=== PATIENT | male | born 1950 | race Caucasian/White ===

== ENCOUNTER → 2018-01-06 12:56 | Outpatient (CLI) | payer MEDICARE, OTHER, SELFPAY ==
--- NOTE | 2018-01-06 13:00 | CT_ITS ---
STUDY: CT ABDOMEN AND PELVIS WITH CONTRAST REASON FOR EXAM: Male, 67 years old. Renal cancer follow-up. RADIATION DOSAGE (If Supplied By Facility): CTDIvol = ( 18.86 ) mGy, DLP = ( 1938.94 ) mGycm TECHNIQUE: Transaxial images were obtained from the dome of the diaphragm to the symphysis pubis without oral contrast. 100mL ml of Isovue 300 contrast was administered. Sagittal and coronal images were reconstructed. Individualized dose optimization techniques were used for this CT. COMPARISON: November 15, 2016. June 13, 2016. June 05, 2016. FINDINGS: The visualized lung bases are unremarkable. The visualized portions of the heart are within normal limits. Small to moderate hiatal hernia likely increased in size since the prior study. Normal liver. Normal gallbladder and extrahepatic biliary system. Normal spleen. Normal pancreas. Normal bilateral adrenal glands. Scattered bilateral subcentimeter cortical cysts. Complex cyst or solid nodule, slightly increased in size since the prior study, and located anterior cortex superior/mid pole left kidney measuring 1.4 x 1.1 x 0.9 cm, attenuation 74 Hounsfield units axial image 39 series 2 and sagittal image 103. On the prior study the nodule measured 0.8 cm. Postoperative changes of partial left nephrectomy by history. Normal visualized stomach. Normal small intestine. Normal colon. Suture line and distal sigmoid colon. The appendix is visualized and appears normal. Normal abdominal aorta. Normal inferior vena cava. Normal retroperitoneum. No intra-abdominal free air. Mild smooth anterior bladder wall thickening. Borderline prostate gland enlargement. Small bilateral inguinal hernias containing fat. Minimal degenerative changes of the lumbar spine. CT/Abdomen/Pelvis WITH Contrast IMPRESSION: No evidence of recurrence of tumor. Slight increase in size of complex cyst or solid nodule anterior cortex superior/ midpole left kidney. Correlate with ultrasound. Slight increase in size of hiatal hernia. Mild bladder wall thickening could represent mild bladder outlet obstruction or cystitis among other etiologies. Bilateral renal cortical cysts unchanged. Borderline prostate gland enlargement. Additional nonemergent findings as above. Electronically Signed: Paramjit Jimenez MD at 6:51 EDT , Service support ,
== END ==
PROVIDERS: Family Provider Internal Medicine; PCP Internal Medicine; Visit Provider Urology
DX: C64.9 Malignant neoplasm of unspecified kidney, except renal pelvis (principal)
CPT/HCPCS: 74177; Q9967

== ENCOUNTER → 2018-01-08 16:29 | Outpatient (CLI) | payer MEDICARE, OTHER, SELFPAY ==
--- NOTE | 2018-01-08 16:32 | RAD_ITS ---
STUDY: X-RAY CHEST REASON FOR EXAM: Male, 67 years old. Kidney cancer TECHNIQUE: AP and lateral views of the chest. COMPARISON: Prior study of November 15, 2016 FINDINGS: The lungs are clear and expanded. There is left costophrenic angle blunting. The heart size is normal. Status post sternotomy changes are present. Normal mediastinum and angeal. Normal visualized pulmonary arteries. There are calcified plaques of the aortic arch. Normal visualized thoracic spine. Normal visualized ribs, clavicles, and shoulders. There is no demonstrated abnormality of the visualized soft tissue structures of the upper abdomen. RAD/Chest PA and Lateral IMPRESSION: Status post sternotomy. Left costophrenic angle blunting, stable in the interval. Calcified plaques of the aortic arch. No acute cardiopulmonary disease process is seen. Electronically Signed: Farhan León MD at 23:59 EDT , Service support ,
== END ==
PROVIDERS: Family Provider Internal Medicine; PCP Internal Medicine; Visit Provider Urology
DX: Z85.528 Personal history of other malignant neoplasm of kidney (principal)
CPT/HCPCS: 71046

== ENCOUNTER → 2018-06-29 07:47 | Outpatient (CLI) | payer MEDICARE, OTHER, SELFPAY ==
[2018-06-26 10:26] LABS: Anion Gap 8 (5-15); BUN 12 mg/dL (7-18); BUN/Creat Ratio 10.8 RATIO (10-20); Calcium,Total 9.2 mg/dL (8.5-10.1); Chloride 104 mmol/L (98-107); Creatinine, Serum 1.11 mg/dL (0.70-1.30); EST Glomerular Filtration Rate 70 mL/min (>60); Est Glom Filt Rate - Afr Amer 85 mL/min (>60); Glucose 202 mg/dL (74-106); PSA,Total - Annual Screen 3.11 ng/mL (0.00-4.00); Potassium 4.1 mmol/L (3.5-5.1); Sodium Level 140 mmol/L (136-145)
--- NOTE | 2018-06-29 07:50 | CT_ITS ---
STUDY: CT ABDOMEN WITH CONTRAST REASON FOR EXAM: Male, 68 years old. History of partial left nephrectomy for renal cell carcinoma. Follow-up examination. RADIATION DOSAGE (If Supplied By Facility): CTDIvol = ( 15.19 ) mGy, DLP = ( 783.18 ) mGycm TECHNIQUE: Transaxial images were obtained post I.V. administration of 75ml ml of Isovue 300 contrast, and without oral contrast. Sagittal and coronal images were reconstructed. Individualized dose optimization techniques were used for this CT. COMPARISON: Comparison is made with prior study dated January 06, 2018. FINDINGS: Stable pleural parenchymal changes at the left lung base. Prior CABG. Coronary artery calcification. Normal liver. Normal gallbladder and extrahepatic biliary system. Normal spleen. Normal pancreas. Normal bilateral adrenal glands. Stable 1.5 cm x 1.4 cm rounded hypodensity in the superior lateral portion of the right kidney. This is not a typical cyst. Correlation with ultrasound is recommended for further evaluation. Stable 1.5 cm round hypodensity in the anterior superior midportion of the left kidney. This is unchanged. Stable postsurgical changes are seen in the inferior aspect of the left kidney. Mild degree nonspecific bilateral perinephric stranding. There is a small hiatal hernia. Normal small intestine. Normal colon. The appendix is visualized and appears normal. There is diffuse atherosclerotic calcification of the abdominal aorta and its major visceral branches, without a demonstrated aneurysm. Normal inferior vena cava. Normal retroperitoneum. There is a small umbilical hernia containing fat. There are diffuse degenerative changes of the visualized lumbar spine. CT/Abdomen WITH IV Contrast IMPRESSION: Stable examination. Electronically Signed: Jaziel Ibarra MD at 14:36 EST Tel [phone], Service support ,
--- NOTE | 2018-06-29 07:50 | RAD_ITS ---
STUDY: X-RAY CHEST REASON FOR EXAM: Male, 68 years old. History of renal cell carcinoma. TECHNIQUE: PA and lateral views of the chest. COMPARISON: Comparison is made with prior study dated January 08, 2018. FINDINGS: Stable increased linear markings in the left mid lung suggestive of scarring. Hyperinflation. Stable blunting of the left costophrenic angle. Sternal cerclage wires and vascular clips are present from a prior sternotomy and coronary artery bypass graft procedure (CABG). Normal mediastinum and angela. Normal visualized pulmonary arteries. There is atherosclerotic calcification of the aortic arch with tortuosity. Normal visualized thoracic spine. Normal visualized ribs, clavicles, and shoulders. There is no demonstrated abnormality of the visualized soft tissue structures of the upper abdomen. RAD/Chest PA and Lateral IMPRESSION: Status post CABG. Stable increased linear markings at the left mid lung suggesting scarring. Electronically Signed: Jaziel Ibarra MD at 14:28 EST Tel [phone], Service support ,
--- OUTSIDE RECORDS SUMMARY | 2018-08-31 15:15 | XMS RPT_ITS ---
:1950 Author Organization [facility] Care Team Providers Name Role Phone KORABLEVA, CULLEN B Admitting Unavailable KORABLEVA, CULLEN B Attending Unavailable KORABLEVA, CULLEN B Primary Care Unavailable KORABLEVA, CULLEN B Admitting Unavailable KORABLEVA, CULLEN B Attending Unavailable KORABLEVA, CULLEN B Primary Care Unavailable RAMY ANDERSON MD Consulting Unavailable PROVIDER, UNKNOWN Consulting Unavailable PROVIDER, UNKNOWN Consulting Unavailable PROVIDER, UNKNOWN Consulting Unavailable KORABLEVA, CULLEN B Admitting Unavailable KORABLEVA, CULLEN B Attending Unavailable LISEABLEVA, CULLEN B Primary Care Unavailable RAMY ANDERSON MD Consulting Unavailable PROVIDER, UNKNOWN Consulting Unavailable PROVIDER, UNKNOWN Consulting Unavailable PROVIDER, UNKNOWN Consulting Unavailable Migue Barajas Attending Unavailable Migue Barajas Referring Unavailable JUSTIN BUTROS Primary Care Unavailable Migue Barajas Attending Unavailable Migue Barajas Referring Unavailable LATOUMichi, BUTROS Primary Care Unavailable Kormagdiva, Cullen Consulting Unavailable Migue Barajas Attending Unavailable Migue Barajas Referring Unavailable LATOUF, BUTROS Primary Care Unavailable PROBLEMS PROBLEMS DATE TYPE CONDITION / CODE ATTENDING STATUS SOURCE 06/29/2018 Unknown Z12.5 - Encounter Migue Barajas Active [place] for screening for [facility] malignant neoplasm [facility] / Repository Z12.5(ICD-10) 09/29/2017 Admitting Type 2 diabetes KORABLEVA, Active Andi [place] Diagnosis 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 / E1121(ICD-10) Repository 09/29/2017 Secondary Mixed hyperlipidemia KORABLEVA, Active [facility] Diagnosis / E782(ICD-10) [facility] Repository PROCEDURES PROCEDURES No Procedure Records FoundRESULTS RESULTS CHEST PA AND LATERAL Observed: 06/29/2018 Status: F Source: JOSE 7:51 AM [facility] REPOSITORY [facility] Imaging Services [address] [place] [address] Chest PA and Lateral MR#: [id number] Acct: [id number] Name: GIO HODGE Rep #: [id number] : 1950 M 68 From: Jaziel Ibarra MD PCP: Ramy Anderson Status: REG CLI Study: Chest PA and Lateral Date of Exam: 06/29/18 Exam# [id number] Ordering Dr: Migue Barajas MD STUDY: X-RAY CHEST REASON FOR EXAM: Male, 68 years old. History of renal cell carcinoma. TECHNIQUE: PA and lateral views of the chest. COMPARISON: Comparison is made with prior study dated January 08, 2018. FINDINGS: Stable increased linear markings in the left mid lung suggestive of scarring. Hyperinflation. Stable blunting of the left costophrenic angle. Sternal cerclage wires and vascular clips are present from a prior sternotomy and coronary artery bypass graft procedure (CABG). Normal mediastinum and angela. Normal visualized pulmonary arteries. There is atherosclerotic calcification of the aortic arch with tortuosity. Normal visualized thoracic spine. Normal visualized ribs, clavicles, and shoulders. There is no demonstrated abnormality of the visualized soft tissue structures of the upper abdomen. RAD/Chest PA and Lateral IMPRESSION: Status post CABG. Stable increased linear markings at the left mid lung suggesting scarring. Electronically Signed: Jaziel Ibarra MD at 14:28 EST Tel [phone], Service support , CC: Ramy Anderson; Migue Barajas MD [place] Sander: Signed ABDOMEN WITH IV Observed: 06/29/2018 Status: F Source: [place] CONTRAST 7:51 AM [facility] REPOSITORY [facility] Imaging Services [address] [place] [address] Abdomen WITH IV Contrast MR#: [id number] Acct: [id number] Name: GIO HODGE Rep #: [id number] : 1950 M 68 From: Jaziel Ibarra MD PCP: Ramy Anderson Status: REG CLI Study: Abdomen WITH IV Contrast Date of Exam: 06/29/18 Exam# [id number] Ordering Dr: Migue Barajas MD STUDY: CT ABDOMEN WITH CONTRAST REASON FOR EXAM: Male, 68 years old. History of partial left nephrectomy for renal cell carcinoma. Follow-up examination. RADIATION DOSAGE (If Supplied By Facility): CTDIvol = ( 15.19 ) mGy, DLP = ( 783.18 ) mGycm TECHNIQUE: Transaxial images were obtained post I.V. administration of 75ml ml of Isovue 300 contrast, and without oral contrast. Sagittal and coronal images were reconstructed. Individualized dose optimization techniques were used for this CT. COMPARISON: Comparison is made with prior study dated January 06, 2018. FINDINGS: Stable pleural parenchymal changes at the left lung base. Prior CABG. Coronary artery calcification. Normal liver. Normal gallbladder and extrahepatic biliary system. Normal spleen. Normal pancreas. Normal bilateral adrenal glands. Stable 1.5 cm x 1.4 cm rounded hypodensity in the superior lateral portion of the right kidney. This is not a typical cyst. Correlation with ultrasound is recommended for further evaluation. Stable 1.5 cm round hypodensity in the anterior superior midportion of the left kidney. This is unchanged. Stable postsurgical changes are seen in the inferior aspect of the left kidney. Mild degree nonspecific bilateral perinephric stranding. There is a small hiatal hernia. Normal small intestine. Normal colon. The appendix is visualized and appears normal. There is diffuse atherosclerotic calcification of the abdominal aorta and its major visceral branches, without a demonstrated aneurysm. Normal inferior vena cava. Normal retroperitoneum. There is a small umbilical hernia containing fat. There are diffuse degenerative changes of the visualized lumbar spine. CT/Abdomen WITH IV Contrast IMPRESSION: Stable examination. Electronically Signed: Jaziel Ibarra MD at 14:36 EST Tel [phone], Service support , CC: Ramy Anderson; Migue Barajas MD [place] Sander: Signed BASIC METABOLIC Collected: 06/26/2018 Status: F Source: JOSE PROFILE (BMP) 9:05 AM [facility] REPOSITORY Order Comment: Comments: \ TYPE CODE TESTS RESULT OUT OF RANGE REFERENCE UNITS LAB L501.0100 74-106 mg/dL High GLU 202 Result Comment: Glucose result greater than or equal to 200 mg/dL suggests DIABETES MELLITUS per A.D.A. criteria. Please note revised GLUCOSE reference range effective 2017. LAB L501.1000 7-18 mg/dL Normal BUN 12 LAB L501.1100 0.70-1.30 mg/dL Normal CREAT,SERUM 1.11 Result Comment: The validity of the calculated GFR AND GFRAA in patients over 70 years has not been determined. Clinical correlation is essential. LAB L501.1110 >60 mL/min Normal EST GFR 70 Result Comment: Non- GFR Calc LAB L501.1115 >60 mL/min Normal EST GFR - AA 85 Result Comment: GFR Calc LAB L501.1300 10-20 RATIO Normal BUN/CRE 10.8 LAB L501.2200 8.5-10.1 mg/dL CA Normal 9.2 LAB L501.5300 136-145 mmol/L NA Normal 140 LAB L501.5600 3.5-5.1 mmol/L K Normal 4.1 LAB L501.5900 98-107 mmol/L CL Normal 104 LAB L501.6100 21.0-32.0 mmol/L Normal CO2 28.0 LAB L501.6200 5-15 Normal GAP 8 Performed By: #### L500.2500, L501.9910 #### [facility] [address] [place], [address] PSA,TOTAL - ANNUAL Collected: 06/26/2018 Status: F Source: [place] SCREEN 9:05 AM [facility] REPOSITORY Order Comment: Comments: \ TYPE CODE TESTS RESULT OUT OF RANGE REFERENCE UNITS LAB L501.9910 0.00-4.00 ng/mL Normal PSA,TOT 3.11 SCREEN Result Comment: This test was performed using the TPSA assay method for the Data[employer] chemistry system. Values obtained with different assay methods cannot be used interchangably. When changing PSA assays in the course of monitoring a patient, additional sequential testing should be carried out to confirm baseline values. Performed By: #### L500.2500, L501.9910 #### [facility] [address] [place], [address] CHEST PA AND LATERAL Observed: 01/08/2018 Status: F Source: JOSE 4:32 PM [facility] REPOSITORY [facility] Imaging Services [address] [place] [address] Chest PA and Lateral MR#: [id number] Acct: [id number] Name: GIO HODGE Kimberly Rep #: [id number] : 1950 M 67 From: Farhan León MD PCP: Ramy Anderson Status: REG CLI Study: Chest PA and Lateral Date of Exam: 01/08/18 Exam# [id number] Ordering Dr: Migue Barajas MD STUDY: X-RAY CHEST REASON FOR EXAM: Male, 67 years old. Kidney cancer TECHNIQUE: AP and lateral views of the chest. COMPARISON: Prior study of November 15, 2016 FINDINGS: The lungs are clear and expanded. There is left costophrenic angle blunting. The heart size is normal. Status post sternotomy changes are present. Normal mediastinum and angela. Normal visualized pulmonary arteries. There are calcified plaques of the aortic arch. Normal visualized thoracic spine. Normal visualized ribs, clavicles, and shoulders. There is no demonstrated abnormality of the visualized soft tissue structures of the upper abdomen. RAD/Chest PA and Lateral IMPRESSION: Status post sternotomy. Left costophrenic angle blunting, stable in the interval. Calcified plaques of the aortic arch. No acute cardiopulmonary disease process is seen. Electronically Signed: Farhan León MD at 23:59 EDT , Service support , CC: Ramy Anderson; Migue Barajas MD [place] Sander: Signed ABDOMEN/PELVIS WITH Observed: 01/06/2018 Status: F Source: [place] CONTRAST 1:00 PM [facility] REPOSITORY [facility] Imaging Services [address] [place] [address] Abdomen/Pelvis WITH Contrast MR#: [id number] Acct: [id number] Name: GIO HODGE Rep #: [id number] : 1950 67 From: Paramjit Jimenez PCP: Ramy Anderson Status: REG CLI Study: Abdomen/Pelvis WITH Contrast Date of Exam: 01/06/18 Exam# [id number] Ordering Dr: Migue Barajas MD STUDY: CT ABDOMEN AND PELVIS WITH CONTRAST REASON FOR EXAM: Male, 67 years old. Renal cancer follow-up. RADIATION DOSAGE (If Supplied By Facility): CTDIvol = ( 18.86 ) mGy, DLP = ( 1938.94 ) mGycm TECHNIQUE: Transaxial images were obtained from the dome of the diaphragm to the symphysis pubis without oral contrast. 100mL ml of Isovue 300 contrast was administered. Sagittal and coronal images were reconstructed. Individualized dose optimization techniques were used for this CT. COMPARISON: November 15, 2016. June 13, 2016. June 05, 2016. FINDINGS: The visualized lung bases are unremarkable. The visualized portions of the heart are within normal limits. Small to moderate hiatal hernia likely increased in size since the prior study. Normal liver. Normal gallbladder and extrahepatic biliary system. Normal spleen. Normal pancreas. Normal bilateral adrenal glands. Scattered bilateral subcentimeter cortical cysts. Complex cyst or solid nodule, slightly increased in size since the prior study, and located anterior cortex superior/mid pole left kidney measuring 1.4 x 1.1 x 0.9 cm, attenuation 74 Hounsfield units axial image 39 series 2 and sagittal image 103. On the prior study the nodule measured 0.8 cm. Postoperative changes of partial left nephrectomy by history. Normal visualized stomach. Normal small intestine. Normal colon. Suture line and distal sigmoid colon. The appendix is visualized and appears normal. Normal abdominal aorta. Normal inferior vena cava. Normal retroperitoneum. No intra-abdominal free air. Mild smooth anterior bladder wall thickening. Borderline prostate gland enlargement. Small bilateral inguinal hernias containing fat. Minimal degenerative changes of the lumbar spine. CT/Abdomen/Pelvis WITH Contrast IMPRESSION: No evidence of recurrence of tumor. Slight increase in size of complex cyst or solid nodule anterior cortex superior/ midpole left kidney. Correlate with ultrasound. Slight increase in size of hiatal hernia. Mild bladder wall thickening could represent mild bladder outlet obstruction or cystitis among other etiologies. Bilateral renal cortical cysts unchanged. Borderline prostate gland enlargement. Additional nonemergent findings as above. Electronically Signed: Paramjit Jimenez MD at 6:51 EDT , Service support , CC: Cullen Valdez; Ramy Anderson; Migue Barajas MD [place] Sander: Signed ALLERGIES ALLERGIES DATE TYPE / CODE NAME / CODE REACTION SEVERITY SOURCE 06/05/2016 Drug No Known Unknown Jose [facility] Allergy/4160 Allergies/F00 Hospital 20027(SNOMED 2877294(RXNOR Repository CT) M) ENCOUNTERS ENCOUNTERS ADMIT/DISCHARGE ACCOUNT ADMITTING ENCOUNTER LOCATION SOURCE NUMBER CLASS 06/29/2018 [id number] Ambulatory [place] ing:CT Repository 04/01/2018/ [id number] [facility], [address] Repository 01/08/2018 [id number] Ambulatory [place] ing:RAD Repository 01/06/2018 [id number] Amb[place] [address] [place] [address] ing:CT Repository 12/30/2017/ [id number] [facility], Ambulatory [address] Repository 09/29/2017/ [id number] [address] Repository PAYERS PAYERS ENCOUNTER GUARANTOR PAYER SUBSCRIBER SOURCE 06/29/2018 GIO R Primary GIO R Jose [id number] SR Insurance:MEDICARE MAURERDOB: [address] PART A BPolicy Number: [id number] Hospital 28282Bnt: [id number]) [id number] Repository [phone] () Date:2018-06-23 06/29/2018 Secondary GIO R [place] Insurance:MEDICAL MAURERDOB: [facility] [id number] Hospital Number: Repository [id number] Date:5750-66-84[address] [address]JM: 06/29/2018 Tertiary NOT GIVENUNK Jose Insurance:SELF PAY [facility] Number: Effective Repository Date:2018-06-23 04/01/2018 GIO R Primary GIO R Andi Magallanes MAURERDOB: Insurance:MEDICARE MAURERDOB: [facility] [id number] [facility] [id number] [facility] [address], Number: [address] Repository Ri [id number] [address] [place] [address] [id number]: Date:Plan Name: [id number] () 04/01/2018 Secondary GIO R Andi Magallanes Insurance:MEDICAL MAURERDOB: [facility] [id number] [facility] 7 [facility] Repository Number: [place] [id number] Date: 01/08/2018 GIO R Primary GIO R Jose [id number] SR Insurance:MEDICARE MAURERDOB: [address] PART A BPolicy Number: [id number] Hospital [address]Bqq: 330 [id number] Repository [phone] () Date:2018-01-08 01/08/2018 Secondary GIO R Jose Insurance:MEDICAL MAURERDOB: [facility] [id number] Hospital Number: Repository [id number] Date:4734-16-66JH [address] [place] [address]TX: 01/08/2018 Tertiary NOT GIVENUNK [place] Insurance:SELF PAY [facility] Number: Effective Repository Date:2018-01-08 01/06/2018 GIO R Primary GIO R [place] [id number] SR Insurance:MEDICARE MAURERDOB: [address] PART A BPolicy Number: [id number] Hospital [address]Dff: 330 [id number] Repository [phone] () Date:2017-12-26 01/06/2018 Secondary GIO R Jose Insurance:MEDICAL MAURERDOB: [facility] [id number] Hospital Number: Repository [id number] Date:6659-29-16[address] [address]OL: 01/06/2018 Tertiary NOT GIVENUNK [place] Insurance:SELF PAY [facility] Effective Repository Date:2017-12-26 12/30/2017 GIO R Primary GIO R Andi Pomerene MAURERDOB: Insurance:MEDICARE MAURERDOB: [facility] [id number] [place] [address] [id number] [place] [address], Number: [address] [place]ository [place] [id number] [address] [place] [address] [id number]: Date:Plan Name: [id number] () 12/30/2017 Secondary GIO R Andi Pomerene Insurance:MEDICAL MAURERDOB: [facility] [id number] [place] [address] Repository [place]: [place] [id number] Date:Plan Name: 09/29/2017 GIO R Primary GIO R Andi Pomerene MAURERDOB: Insurance:MEDICAL MAURERDOB: [facility] [id number] [place] [address] [id number] [place] [address] [place]ository [place]: [place] [id number]: [id number] Date:Plan Name: () 09/29/2017 Secondary GIO R Andi Pomerene Insurance:MEDICARE MAURERDOB: [facility] [id number] Hospital Number: 7 [address], Repository [id number] Ri [id number] Date:Plan Name:
== END ==
PROVIDERS: Family Provider Internal Medicine; PCP Internal Medicine; Referring Provider Urology; Visit Provider Urology
DX: C64.9 Malignant neoplasm of unspecified kidney, except renal pelvis (principal); Z12.5 Encounter for screening for malignant neoplasm of prostate
CPT/HCPCS: 36415; 71046; 74160; 80048; 84153; Q9967; G0103

== ENCOUNTER → 2018-07-16 17:26 | Outpatient (CLI) | payer MEDICARE, OTHER, SELFPAY | PROVIDERS: Family Provider Internal Medicine; PCP Internal Medicine; Referring Provider Urology; Visit Provider Urology | DX: R82.998 Other abnormal findings in urine (principal) | CPT/HCPCS: 87077; 87086; 87088; 87186 ==

== ENCOUNTER 2020-05-03 18:58 | Inpatient (IN) | payer MEDICARE, OTHER, SELFPAY ==
[2020-05-03] VITALS (8 sets, daily range): BP systolic 127–166; BP diastolic 79–100; PULSE 84–105; RESP 15–18; TEMP 35.9–36.9; O2SAT 96–99; BMI 30.4
--- NOTE | 2020-05-03 19:12 | EKG12_ITS ---
Test Reason : CP Blood Pressure : / mmHG Vent. Rate : 101 BPM Atrial Rate : 101 BPM P-R Int : 144 ms QRS Dur : 106 ms QT Int : 348 ms P-R-T Axes : 072 095 084 degrees QTc Int : 451 ms Sinus tachycardia Biatrial enlargement Rightward axis Nonspecific ST abnormality Abnormal ECG Confirmed by JASON MATHIAS, GENESIS ([id number]), proposal editor NADEEN SANCHEZ ([id number]) on 05/05/2020 11:10:19 AM Referred By: LIBERTY Confirmed By:GENESIS GOMEZ MD
[2020-05-03] MEDS: Aspirin 81 MG TAB.CHEW 324 MG PO (19:25)
[2020-05-03] MEDS: Morphine 4 MG/ML Syringe IV (19:26)
[2020-05-03] MEDS: Ondansetron 4 MG/2 ML Vial IV (19:26)
[2020-05-03 19:27] LABS: Absolute Lymphocyte Count 1.19 X10^3/uL (0.83-4.51); Absolute Neutrophil Count 11.5 X10^3/uL (2.0-7.7); Basophil# 0.04 X10^3/uL; Basophil% 0.3 % (0-1); Eosinophil# 0.02 X10^3/uL; Eosinophils% 0.2 % (0-5); Lymphocyte # 1.19 X10^3/ul (4.0); Mean Corp Hgb Conc 34.5 g/dL (32-36); Mean Corpuscular Hgb 31.4 pg (27.0-32.0); Mean Corpuscular Volume 90.9 fL (80-94); NRBC Flagged by Analyzer 0 % (0-5); Neutrophil # 11.51 X10^3/uL (2.7-7.7); Platelet Count 235 K/mm3 (150-450); RBC Distribution Width CV 12.6 % (11.6-14.6); Red Blood Count 5.83 M/mm3 (4.6-6.2); White Blood Count 13.2 K/mm3 (4.4-11.0)
--- NOTE | 2020-05-03 19:27 | ED.DCSUM_ITS ---
- ER Visit Summary Date of Service: 05/03/20 Chief Complaint: Chest pain History of Present Illness: The patient is a 70 M presenting with chest pain. He states this started this morning was intermittent and then more persistent throughout the day. Pain is in his mid chest and is 9 out of 10. He states he had diaphoresis earlier today. Denies radiation of his pain. He does not recall anything that makes this better or worse. He has a history of CABG, diabetes, hypertension, hypercholesterolemia. He is a smoker. Denies PE/DVT risk factors. Denies Covid symptoms. Physical Examination: Vitals are stable. Patient is afebrile. Alert no acute distress. HEENT exam is unremarkable. Neck is supple. Lungs are clear and equal bilaterally. Heart is regular tachycardic Abdomen is soft nontender nondistended. Extremities are unremarkable. Skin is warm and dry. No focal neurologic deficit. Remainder of exam is unremarkable. Emergency Department Course and Treatment: Patient was given aspirin, morphine, Zofran. EKG is sinus tachycardia, ST depression anterior laterally. Chemistries show glucose 380, BUN 19, creatinine 1.31. Troponin 3.82. He continues to have pain was given nitro, fentanyl IV. D-dimer over 20. Covid is negative. Due to elevated D-dimer, CTA chest was obtained and shows negative for pulmonary embolus. Atherosclerotic changes of the aorta without aneurysm or dissection. Normal cardiac size without pericardial effusion. Extensive coronary calcifications status post prior midline sternotomy. Centrilobular emphysematous changes of the upper lobes and diffuse bronchial thickening particularly in the lower lobes and more so in the left lower lobe with a dense band of atelectatic lung in the posterior left lower lobe without pleural effusion. Minor band of atelectasis in the dependent lingula. Discussed with Dr. Obregon, cardiology. He evaluated the patient at bedside. Patient had a short run of V. tach while he was in the room. He continues to have chest pain and will be taken to the [facility] tonight. Discussed with hospitalist for admission. Disposition: Admission Impression: NSTEMI This note was generated with miCabation software. It may contain incorrect words, spelling, and punctuation that were not noted in review of the chart prior to signing ED Disposition - Plan for ED Patient:
--- NOTE | 2020-05-03 19:35 | RAD_ITS ---
STUDY: X-RAY CHEST REASON FOR EXAM: Male, 70 years old. PATIENT WITH CHEST PAIN THAT STARTED AROUND NOON TODAY. HAS BEEN CONSTANT SINCE NOON. DOES NOT RADIATE ANYWHERE. HISTORY OF CABG. TECHNIQUE: 1 view COMPARISON: Prior chest radiograph of 06/29/2018 FINDINGS: The lungs are clear and expanded. There is no demonstrated pleural abnormality. Normal cardiac size status post prior midline sternotomy. Normal mediastinum and angela. Normal visualized pulmonary arteries. There is atherosclerotic calcification of the aortic arch with tortuosity. There are diffuse degenerative changes of the visualized thoracic spine. Normal visualized ribs, clavicles, and shoulders. There is no demonstrated abnormality of the visualized soft tissue structures of the upper abdomen. RAD/Chest 1 View (Portable) IMPRESSION: No acute cardiopulmonary findings or changes. Negative for consolidation, atelectasis or pleural effusion. Normal cardiac size status post prior midline sternotomy. Electronically Signed: Nisha Holliday MD at 20:34 EST , Service support ,
[2020-05-03 19:49] LABS: Anion Gap 7 (5-15); BUN 19 mg/dL (7-18); BUN/Creat Ratio 14.5 RATIO (10-20); Calcium,Total 10.5 mg/dL (8.5-10.1); Chloride 98 mmol/L (98-107); Creatinine, Serum 1.31 mg/dL (0.70-1.30); EST Glomerular Filtration Rate 58 mL/min (>60); Est Glom Filt Rate - Afr Amer 70 mL/min (>60); Estimated Creatinine Clearance 48.03 ml/min; Glucose 380 mg/dL (74-106); Potassium 4.3 mmol/L (3.5-5.1); Sodium Level 136 mmol/L (136-145)
[2020-05-03] MEDS: Nitroglycerin SL (ED/IMG/CATH) 0.4 MG TABLET SUBLINGUAL (19:58)
[2020-05-03 20:04] LABS: D-Dimer Quantitative (DVT/PE) > 20.00 FEU/ug/m (0.27-0.49)
[2020-05-03 20:08] LABS: Hemoglobin 18.3 g/dL (13.0-16.5)
--- NOTE | 2020-05-03 20:12 | CT_ITS ---
STUDY: CTA CHEST REASON FOR EXAM: Male, 70 years old. CHEST PAIN SINCE NOON,HAS ELEVATED TROPONIN -- HX:HTN,ME,HLD,CABG,1/2 LT KIDNEY REMOVED RADIATION DOSAGE (If Supplied By Facility): CTDIvol = ( 8.86 ) mGy, DLP = ( 422.37 ) mGycm TECHNIQUE: The examination was performed with the intravenous administration of IV 100mL [id number]-370. Post-processing of the angiographic images was performed, with multiplanar reformation and 3D reconstruction. Individualized dose optimization techniques were used for this CT. COMPARISON: Portable chest radiograph from 05/03/2020 FINDINGS: Normal enhancement of the main pulmonary artery and right and left pulmonary arteries. Normal enhancement of the bilateral peripheral pulmonary arteries. There is no demonstrated pulmonary embolism. There is atherosclerotic calcification of the aortic arch with tortuosity. There is no demonstrated aortic dissection. Normal heart and pericardium. Coronary calcifications. Status post prior midline sternotomy. He has a fluid distended stomach and fluid retention or reflux into the esophagus. Normal hilar regions. Centrilobular emphysematous changes of the upper lobes. Generalized bronchial thickening particularly in the bilateral lower lobes more so in the left lower lobe with a dependent area of dense atelectasis or consolidation in the posterior left lower lobe and to a lesser extent the dependent portion of the lingula. Negative for pleural effusion. Normal chest wall structures. Normal osseous structures. He has a prominent left thyroid lobe that extends down to the manubrial notch. CT/CTA Chest W/WO Contrast IMPRESSION: Negative for pulmonary embolus. Atherosclerotic changes of the aorta without aneurysm or dissection. Normal cardiac size without pericardial effusion. Extensive coronary calcifications status post prior midline sternotomy. Centrilobular emphysematous changes of the upper lobes and diffuse bronchial thickening particularly in the lower lobes and more so in the left lower lobe with a dense band of atelectatic lung in the posterior left lower lobe without pleural effusion. Minor band of atelectasis in the dependent lingula. Electronically Signed: Nisha Holliday MD at 21:41 EST , Service support ,
[2020-05-03 20:15] LABS: Partial Thromboplast Time 27.1 Seconds (24.1-36.2)
[2020-05-03] MEDS: Heparin Injection (Vial) 5,000 UNIT/ML VIAL 6000 UNIT IV (20:46)
[2020-05-03] MEDS: HEPARIN/D5w 25,000 UNITS 25,000 UNITS/250 ML IV.SOLN. 0.1 UNITS IV (20:47)
[2020-05-03] MEDS: fentaNYL 100 MCG/2 ML Ampul IV (20:48)
[2020-05-03] MEDS: Nitroglycerin (INPATIENT USE) 0.4 MG TAB.SUBL SUBLINGUAL ×2 (20:53→20:57)
--- NOTE | 2020-05-03 21:39 | ED.RN ---
SON CALLED AND UPDATED ON PATIENT CONDITION
--- NOTE | 2020-05-03 21:55 | PCM.HP.STD ---
Problem List (1) Non-STEMI (non-ST elevated myocardial infarction) Status: Acute (2) HTN (hypertension) Status: Chronic (3) Diabetes Status: Acute (4) Tobacco abuse Status: Acute History of Present Illness Date of Admission: 05/03/20 Chief Complaint: chest pain The patient is a 70 year old M with a significant history of hypertension; diabetes mellitus; tobacco abuse; CAD status post 5 vessel CABG; and 3 stents who presents to the emergency department with progressively worsening excruciating nonradiating substernal chest pain that started on the same day of presentation. He denies any ameliorating or aggravating factors. He denies any nausea or vomiting. He reported diaphoresis. EKG at emergency department showed ST depressions in multiple leads. Troponin was elevated. Cardiology was consulted at emergency department and plan is to take patient to the [facility]. Past Medical History Past Medical History (Chronic Problems): Chronic Problems (Last Updated 05/03/20 @ 23:[address] Yeison Nevarez MD) HTN (hypertension) (Chronic) Medical History: Medical History (Last Updated 05/03/20 @ 23:[address] Yeison Nevarez MD) Diabetes mellitus E11.9 Allergies No Known Allergies Allergy (Verified 05/03/20 19:02) Home Medications: Ambulatory Orders Medication Instructions Recorded Aspirin [Aspirin, Baby] 81 mg PO DAILY@0800 11/01/14 Atorvastatin Calcium [Lipitor] 40 mg PO QHS 11/01/14 Lisinopril [Zestril] 10 mg PO DAILY 11/01/14 Metoprolol Tartrate [Lopressor 25 mg PO BID 11/01/14 (Beta Yoni)] metFORMIN HCl [Glucophage] 500 mg PO BIDCM #60 tablet 11/02/14 Clopidogrel Bisulfate [Plavix] 75 mg PO DAILY 06/05/16 Glimepiride [Amaryl] 2 mg PO DAILY 06/06/16 Surgical History: - - CABG; coronary stents. Smoking Status: Current every day smoker Tobacco Use: Cigarettes - *Family History Maternal History Items: - - His mother at the age of 92. Denies any knowledge of maternal medical history. Paternal History Items: Diabetes - His father from diabetes at the age of 68. Review of Systems Constitutional: Denies: Chills, Fever, Weight Change HEENT: Denies: Head Aches, Sinus Congestion, Sinus Drainage Cardiovascular: Reports: Chest Pain. Denies: Palpitations Respiratory: Denies: Cough, Shortness of breath at rest, Sputum production Gastrointestinal: Denies: Abdominal Pain, Nausea, Vomiting Genitourinary: Denies: Dysuria Musculoskeletal: Denies: Joint Pain, Joint Tenderness Skin: Denies: Rash, Wounds Neurological: Denies: Numbness, Tingling, Focal weakness Psychiatric: Denies: Anxiety, Depression, Homicidal Ideations, Suicidal Ideations Hematologic/ Lymphatic: Denies: Easy Bruising, Easy Bleeding VTE Information - Inpt Only VTE Present on Admission: No VTE Mechan Device Prophylaxis: None VTE Pharm Prophylaxis ordered?: No Reason prophylaxis not ordered:: Treatment Not Indicated - Started on therapeutic dose of heparin for non-STEMI. Patient Problems: Active and Suspected Problems (Last Updated 05/03/20 @ 23:[address] Yeison Nevarez MD) Non-STEMI (non-ST elevated myocardial infarction) (Acute) Diabetes (Acute) Tobacco abuse (Acute) - Physical Exam Vitals/I&O's: Vital Signs Temp Pulse Resp BP Pulse Ox 96.7 F L 102 H 16 145/95 H 96 05/03/20 18:59 05/03/20 21:00 05/03/20 21:00 05/03/20 21:00 05/03/20 21:00 Oxygen Flow Rate (L/min) 2 Oxygen Delivery Method Room Air Weight: 85.7 kg Body Mass Index (BMI) 30.4 Finger Stick Blood Glucose 206 General: Alert, Oriented x3, Cooperative HEENT: Atraumatic, PERRLA, EOMI, Normocephalic Neck: Supple, No JVD, Negative Carotid Bruits Lungs: Clear to auscultation, Normal air movement Cardiovascular: Regular rate, No murmurs Abdomen: Bowel Sounds Present, Soft, Non Tender Extremities: No edema, Capillary Refill Less than 3 Seconds Skin: No rashes, No breakdown Musculoskeletal: No Tenderness to Palpation of Joints or Extremities Neurological: Cranial nerves II-XII grossly intact Psych/Mental Status: Normal Affect, Appropriate Microbiology Past 72 Hours 05/03/20 20:02 Mucosa - Nose SARS-CoV-2 Antigen (Rapid) - Final Laboratory Results 05/03/20 19:05: WBC 13.2 H, RBC 5.83, Hgb 18.3 H*, Hct 53.0, MCV 90.9, MCH 31.4, MCHC 34.5, RDW Std Deviation 41.0, RDW Coeff of Medardo 12.6, Plt Count 235, MPV 12.0, Immature Gran % (Auto) 0.500, Neut % (Auto) 87.0 H, Lymph % (Auto) 9.0 L, [place] % (Auto) 3.0, Eos % (Auto) 0.2, Baso % (Auto) 0.3, Absolute Neuts (auto) 11.5 H, Absolute Lymphs (auto) 1.19, Nucleated RBC % 0 05/03/20 19:05: D-Dimer Quant (PE/DVT) > 20.00 H* 05/03/20 19:05: Sodium 136, Potassium 4.3, Chloride 98, Carbon Dioxide 31.0, Anion Gap 7, BUN 19 H, Creatinine 1.31 H, Estim Creat Clear Calc 48.03, Est GFR (MDRD) Af Amer 70, Est GFR (MDRD) Non-Af 58 L, BUN/Creatinine Ratio 14.5, Glucose 380 H, Calcium 10.5 H, Troponin I 3.820 H* 05/03/20 19:05: APTT 27.1 Current Medications Heparin Sodium (Porcine) (Heparin Injection (Vial) 5,000 Unit/Ml Vial) 0 unit IV UD PRN; Protocol PRN Reason: dose adjustment Heparin Sodium/Dextrose () 25,000 units in 250 mls @ 12 mls/hr IV .[id number] [facility]; Protocol Last Admin: 05/03/20 20:47 Dose: 12 units/hr, 0.1 mls/hr Documented by: Assessment/Plan All Active Problems (Last Updated 05/03/20 @ 23:[address] Yeison Nevarez MD) Non-STEMI (non-ST elevated myocardial infarction) (Acute) Diabetes (Acute) Tobacco abuse (Acute) Non-ST elevation [place] Review of imaging department labs showed troponin of 3.820. Patient was evaluated at emergency department by cardiology. Reportedly while cardiology was in the patient's room patient had an episode of V. tach. Trend troponins. Plan is to admit patient to the intensive care unit after cardiac cath. Actual CXR image was independently visualized. No acute cardiopulmonary process was noted. Actual EKG tracing was independently visualized. EKG tracing showed ST depressions in multiple leads. ASA 81 mg p.o. daily continued. Reportedly he was on Plavix. Last stent was about 4 years ago. Reportedly his Plavix was stopped about 2 years ago. SL NTG 0.4 mg prn as needed for chest pain ordered Morphine as needed for pain ordered We will check lipid panel. Statin: Home Lipitor continued. Anticoagulation: Was started on therapeutic dose of heparin at emergency department; continued. Stat EKG for chest pain. Hypertension Blood pressure was elevated on presentation Lisinopril and metoprolol continued Trend blood pressure and adjust blood pressure medications. Diabetes mellitus Patient with hyperglycemia on presentation With n.p.o. for cardiac cath would hold home glimepiride and metformin. Lantus ordered. Accu-Chek every 4 hours with correction scale insulin. Tobacco abuse Counseled. DVT prophylaxis Not indicated since patient is on heparin drip for non-STEMI. Inpatient E&M: 31130 Init Hosp L3
--- NOTE | 2020-05-03 22:02 | PCM.CONS.C ---
Problem List (1) Non-STEMI (non-ST elevated myocardial infarction) Status: Acute Reason for Consult Date of Consultation: 05/03/20 Reason for Consultation: Non-STEMI with ventricular tachycardia History of Present Illness: The patient is a 70 year old M started having substernal precordial chest pressure with shortness of breath at noon time. He got worse. He was seen emergency room. He was found to have sinus tachycardia and ST segment depression. While during interrogation, I saw 7 beats of unsustained ventricular tachycardia. At this point patient still having 5 out of 10 pain. His cardiac history dates back to 2013. At that time patient had 5 grafts bypass. 4 years ago, patient had 3 stents put in. 2017 before partial left renal nephrectomy for renal cell carcinoma he had a normal stress test. Since then he did well. He is still smoking a pack of cigarettes a day. He is a nondrinker. He is known to have hypertension, diabetes or hyperlipidemia. He claims that he never had a heart attack or CVA. In a good day, patient can do anything he wants to do with no difficulty. Enzymes was elevated [] Past Medical History Allergies/Adverse Reactions: Allergies No Known Allergies Allergy (Verified 05/03/20 19:02) Home Medications: Ambulatory Orders Medication Instructions Recorded Aspirin [Aspirin, Baby] 81 mg PO DAILY@0800 11/01/14 Atorvastatin Calcium [Lipitor] 40 mg PO QHS 11/01/14 Lisinopril [Zestril] 10 mg PO DAILY 11/01/14 Metoprolol Tartrate [Lopressor 25 mg PO BID 11/01/14 (Beta Yoni)] metFORMIN HCl [Glucophage] 500 mg PO BIDCM #60 tablet 11/02/14 Clopidogrel Bisulfate [Plavix] 75 mg PO DAILY 06/05/16 Glimepiride [Amaryl] 2 mg PO DAILY 06/06/16 Smoking Status: Current every day smoker Review of Systems - Review of Systems General: Denies: Fever, Night Sweats, Fatigue HEENT: Reports: - - Hard of hearing Cardiovascular: Reports: Chest Discomfort Respiratory: Denies: Cough, Sputum Production, Hemoptysis Gastrointestinal: Denies: Hematemesis, Hematochezia, Melena Genitourinary: Reports: - - Renal partial nephrectomy for renal cell carcinoma. Denies: Dysuria, Hematuria Objective: Vital Signs Temp Pulse Resp BP Pulse Ox 96.7 F L 102 H 16 145/95 H 96 05/03/20 18:59 05/03/20 21:00 05/03/20 21:00 05/03/20 21:00 05/03/20 21:00 Oxygen Flow Rate (L/min) 2 Oxygen Delivery Method Room Air Weight: 188 lb 14.978 oz Body Mass Index (BMI) 30.4 Finger Stick Blood Glucose 206 General: Awake, Alert, Oriented x 3, Cooperative, - - With chest pain HEENT: PERRL, EOMI, Sclera Non Icteric Neck: Supple Lungs: Diminished Giovani Bases, - - No bronchospasm Cardiovascular: Regular Rhythm, Normal S1, Normal S2, No Murmurs, No Rubs, No Gallops Vascular: No Carotid Bruits, Normal Femoral Pulses, Decreased R Dorsalis Pedal Pulse, Decreased L Dorsalis Pedal Pulse, Decreased R Posterior Tibial Pulse, Decreased L Posterior Tibial Pulse Abdomen: Bowel Sounds Present, Soft, Non Tender, No HSM, No Organomegaly Extremities: No edema Neurological: No Focal Motor or Sensory Deficit Psych/Mental Status: Appropriate, Normal Affect 05/03/20 19:05: WBC 13.2 H, RBC 5.83, Hgb 18.3 H*, Hct 53.0, MCV 90.9, MCH 31.4, MCHC 34.5, Plt Count 235, MPV 12.0, Immature Gran % (Auto) 0.500, Neut % (Auto) 87.0 H, Lymph % (Auto) 9.0 L, Wilkin % (Auto) 3.0, Eos % (Auto) 0.2, Baso % (Auto) 0.3, Absolute Neuts (auto) 11.5 H, Nucleated RBC % 0 05/03/20 19:05: D-Dimer Quant (PE/DVT) > 20.00 H* 05/03/20 19:05: Sodium 136, Potassium 4.3, Chloride 98, Carbon Dioxide 31.0, Anion Gap 7, BUN 19 H, Creatinine 1.31 H, Est GFR (MDRD) Af Amer 70, Est GFR (MDRD) Non-Af 58 L, BUN/Creatinine Ratio 14.5, Glucose 380 H, Calcium 10.5 H, Troponin I 3.820 H* 05/03/20 19:05: APTT 27.1 Rhythm: EKG: ECHO: Stress Test: Cardiac Cath: PCI: CT Surgery: Holter monitor: EPS: PPM: CXR: Chest CT Scan: Assessment/Plan #1 non-STEMI with functional class IV angina will proceed with cardiac catheterization tonight because of the ongoing chest pain and nonsustained ventricular tachycardia. The risk and benefit have been explained to the patient. He has given the consent #2 unsustained ventricular tachycardia #3 2013 had 5 grafts bypass #4 COPD from cigarette smoking #5 3 stents put in 4 years ago #6 hypertension, diabetes and hyperlipidemia
[2020-05-04] VITALS (29 sets, daily range): BP systolic 115–161; BP diastolic 55–103; PULSE 67–87; RESP 15–20; TEMP 36.8–37.1; O2SAT 90–98; BMI 30.2
[2020-05-04 00:16] LABS: ACT Activated Clotting Time 324 sec (74-137)
[2020-05-04 00:16] LABS: ACT Activated Clotting Time 357 sec (74-137)
[2020-05-04 00:16] LABS: ACT Activated Clotting Time 191 sec (74-137)
--- NOTE | 2020-05-04 00:30 | EKG12_ITS ---
Test Reason : Blood Pressure : / mmHG Vent. Rate : 074 BPM Atrial Rate : 074 BPM P-R Int : 140 ms QRS Dur : 082 ms QT Int : 382 ms P-R-T Axes : 044 068 085 degrees QTc Int : 424 ms Normal sinus rhythm Normal ECG When compared with ECG of 03-MAY-2020 19:05, MANUAL COMPARISON REQUIRED, DATA IS UNCONFIRMED Confirmed by JASON MATHIAS, GENESIS ([id number]), managing editor NADEEN SANCHEZ ([id number]) on 05/09/2020 9:36:22 AM Referred By: HANSEL Confirmed By:GENESIS GOMEZ MD
--- NOTE | 2020-05-04 00:32 | ECHOCS_ITS ---
Reason For Study: S/P CT Procedure This was a 2D Doppler, Color Flow transthoracic echocardiogram. The study was technically difficult. Contrast injection was performed. Exam performed portable in patient room. Left Ventricle Normal LV size. Moderate concentric left ventricular hypertrophy. The estimated ejection fraction is 53 %. Segmental dysfunction with preserved ejection fraction (see wall motion). Infero-Basal: Hypokinetic. Posterior-Basal: Hypokinetic. Mid-Inferior: Hypokinetic. The rest of the wall segments are normal. Atria Normal left atrium. Normal right atrium. Mitral Valve There is mild mitral annular calcification. Mild (1+) eccentric mitral valve insufficiency. Tricuspid Valve Normal tricuspid valve. Aortic Valve Trisinus/trileaflet aortic valve. Pulmonic Valve Normal pulmonic valve. Trivial pulmonic valve insufficiency. Great Vessels Normal aortic root. The pulmonary artery is normal size. Normal inferior vena cava. Pericardium/Pleural No pericardial effusion. Medication Diluted definity 3ml given slow IV push to enhance endocardial definition. MMode/2D Measurements & Calculations LVIDd: 4.7 cm IVSd: 1.4 cm Ao root diam: 3.3 cm LVIDs: 3.6 cm LVPWd: 1.5 cm LA dimension: 4.7 cm FS: 24.3 % LAV(MOD-bp): 49.6 ml LA A4 area: 19.3 cm2 RA A4 area: 14.6 cm2 LAV(MOD-bp) Indexed: 25.7 ml/m2 LAV(MOD-sp2): 40.2 ml LAV(MOD-sp4): 55.8 ml Time Measurements MV dec time: 0.19 sec Doppler Measurements & Calculations MV E max obed: 101.8 cm/sec Lat Peak E' Obed: 4.1 cm/sec Med Peak E' Obed: 7.4 cm/sec MV A max obed: 134.7 cm/sec E/E' lat: 24.6 E/E' med: 13.7 MV E/A: 0.76 MV V2 max: 149.3 cm/sec MV P1/2t max obed: 96.3 cm/sec Ao V2 max: 141.5 cm/sec MV max P.9 mmHg MV P1/2t: 89.4 msec Ao max P.0 mmHg MV V2 mean: 67.0 cm/sec MV dec slope: 315.6 cm/sec2 MV mean P.2 mmHg MV V2 VTI: 39.8 cm MVA(P1/2t): 2.5 cm2 LV V1 max: 100.5 cm/sec PA V2 max: 82.8 cm/sec LV V1 max P.0 mmHg Interpretation Summary Normal LV size. Moderate concentric left ventricular hypertrophy. The estimated ejection fraction is 53 %. Segmental dysfunction with preserved ejection fraction (see wall motion). Contrast injection was performed. Ordering Physician: Vijay Obregon Referring Physician: tae DILLON Performed By: Celso Hanson RCS
--- NOTE | 2020-05-04 00:34 | CL.PCI_ITS ---
PCI Cardiac Cath Report PCI Report: Procedure: Left heart cardiac catheterization, left ventriculogram, coronary arteriography, stenting of the mid left circumflex, attempted angioplasty of the in-stent restenosis of the distal right coronary artery Clinical history: 70-year-old white male with functional class IV angina and non-STEMI and ventricular tachycardia Indication: Non-STEMI with functional class IV angina and ventricular tachycardia Heart failure: None Stress/imaging: None CAD presentation: 8 hours of chest pain with positive enzymes and ischemic EKG changes as well as paroxysmal ventricular tachycardia Summary: #1 successful stenting of the mid left circumflex, pre-PCI stenoses was 95%, type C lesion, residual stenosis was 0%. MARGOT-3 flow was reestablished from MARGOT II flow #2 attempted angioplasty of the in-stent restenosis of the right posterior descending was performed, despite using high-pressure inflation using NC balloon at 28 lucy, it was unable to reduce the in-stent restenosis significantly may be down to 70%. However, MARGOT-3 flow was re-established from MARGOT I flow. Angioplasty of the proximal right coronary artery inflow in-stent restenosis was performed. No new stent was deployed because of poor distal flow. The inflow in-stent restenosis of the proximal right coronary artery was reduced from 70% to 20%. MARGOT-3 flow was maintained #3 widely patent proximal left anterior descending stent #4 patent LANDAVERDE graft to the diagonal branch #5 occluded venous graft to the distal right coronary artery #6 occluded venous graft to the obtuse marginal branch #7 JONATHAN was not visualized probably occluded #8 mild impairment of left ventricular systolic wall motion and moderately elevated left ventricular end-diastolic pressure #9 patient had stage III renal insufficiency. He will be carefully hydrated with IV normal saline. Renal function will be monitored carefully #10 he will undergo lifestyle modification. Beta-rohit will be increased. Patient remained on aspirin, Plavix and statin. He will be encouraged to quit smoking Procedure Details The risks, benefits, complications, treatment options, and expected outcomes were discussed with the patient. The patient and/or family concurred with the proposed plan, giving informed consent. Patient was brought to the cytology laboratory manager after IV hydration . Patient was further sedated with IV conscious sedation. Subject was prepped and draped in the usual manner. Using the modified Seldinger access technique, a 6 Albanian sheath was placed in the right common femoral artery. Standard diagnostic catheters were used. Exchanges were performed over J-wire. At the end of the procedures, all catheters and sheaths were removed and bleeding was stopped with closure device using Pro-glide Findings: Left ventriculogram: Left ventriculogram was performed in the right anterior oblique projection. Left ventricle was normal in size. There was mild anterolateral and inferobasal hypokinesis Moderate Sedation: Conscious sedation was administered under my supervision with cardiorespiratory monitoring performed by independent and qualified nursing personnel. Medications and dosages are recorded separately in the electronic medical record. Hemodynamics: Heart rate 90 bpm, blood pressure 150/90, left ventricular end- diastolic pressure was 20, there was no gradient seen across the aortic valve. Ejection fraction was 40% to 45% Comment: Ejection fraction was mildly decreased. Left ventricular end-diastolic pressure was moderately elevated Coronary Anatomy: Right dominance Left Main : 30% to 40% left main ostial stenoses by angiogram estimation LAD: Left anterior descending was normal in caliber and wraps around the apex for short distance. There was a widely patent proximal left anterior descending stent. The major diagonal branch was occluded proximally. It filled via the normal LANDAVERDE graft. Otherwise the diagonal branch was normal Diagonals : As stated above Circumflex : Left circumflex was a large-caliber vessel. There was a longtubularstenosisat 20 lucy. The midportion compromising lumen by 95% with T IMI II flow distally. Major Obtuse Marginals : The major obtuse marginal branch was a large-caliber vessel and subdivided into the 2 branches. The anterior branch was occluded at its midportion. The venous graft to this anterior secondary marginal branch was occluded. Larger posterior branch was normal in caliber and free of significant disease. The distal left circumflex was normal in caliber and free of significant disease Right Coronary Artery: Right coronary artery was a normal sized vessel. There was a proximal right coronary artery stent. There was an inflow stent restenosis compromising the lumen by 70%. The posterior descending had a diffuse in-stent restenosis with MARGOT I flow. Distal flow was poorly visualized. Distal right was filled via [id number] collateral Graft study: Patent LANDAVERDE graft to the diagonal branch. Occluded venous graft to the distal right coronary artery. Occluded graft to the obtuse marginal branch. JONATHAN was not seen probably occluded Intervention Lesion: Stenting of the left circumflex, attempt angioplasty of the right posterior descending in-stent restenosis and proximal right coronary artery in- stent restenosis Guiding Catheter used: 6 Albanian left XB 3.5, 6 Albanian AL 0.75, Guide Wire used: Finger Buff Sewer 150, run-through and BMW, balloon used: Emerge: 2.0x15, 2.5x20, 2.5x8, NC 2.5x12 stents Used: Synergy: 3.0x20 Procedure in detail: The left circumflex was dealt with first. Run-through had no difficulty passing through the mid left circumflex into the posterior branch of the major obtuse marginal branch. A 2.0x15 balloon was used to dilate at 20 lucy. This was followed by the 2.5x20 balloon at 14 lucy. The stent was then deployed at 14 lucy. Residual stenosis was reduced to 0%. MARGOT-3 flow was maintained. The distal left circumflex was not compromised. The BMW wire went into the anterior branch of the obtuse marginal branch and into the occluded venous graft The guiding catheter was then exchanged for the 6 [place] AL 0.75. There were run-through cannot go through the severe diffusely diseased in-stent restenosis of the right posterior descending. The pilot plant operator 150 with the 2.0x8 balloon was able to penetrate into the distal right coronary artery. The 2.0 balloon was then used to dilate at 20 lucy. MARGOT-3 flow was reestablished at this point. However there was still was tight 70% stenoses. Despite using the NC 2.5 balloon inflated to 28 atmospheres, the 80% in-stent restenosis cannot be dilated. This could be either due to calcified or under deployed stent. No further attempt was done at this point. The 2.5 balloon was used to dilate the inflow in-stent restenosis of the proximal right coronary artery at 20 lucy. This reduced the 70% stenosis to 20%. No new stent was deployed here because of poor distal flow Estimated Blood Loss: Minimal} Complications: None Disposition condition: Stable
[2020-05-04] MEDS: Metoprolol Tartrate 25 MG Tablet PO (00:39)
[2020-05-04] MEDS: Atorvastatin Calcium 40 MG Tablet PO ×2 (00:39→21:29)
[2020-05-04] MEDS: Insulin Lispro 100 UNIT/ML INSULN.PEN SC ×5 (00:48→21:30)
[2020-05-04 00:50] LABS: Bedside Glucose 415 mg/dL (70-110)
[2020-05-04] MEDS: 0.9% Normal Saline 1,000 ML 75 ML IV (01:04)
[2020-05-04 02:36] LABS: Bedside Glucose 389 mg/dL (70-110)
[2020-05-04 03:30] LABS: Absolute Lymphocyte Count 1.18 X10^3/uL (0.83-4.51); Absolute Neutrophil Count 12.3 X10^3/uL (2.0-7.7); Basophil# 0.03 X10^3/uL; Basophil% 0.2 % (0-1); Eosinophil# 0.02 X10^3/uL; Eosinophils% 0.1 % (0-5); Hematocrit 44.4 % (40-54); Hemoglobin 15.1 g/dL (13.0-16.5); Lymphocyte # 1.18 X10^3/ul (4.0); Lymphocyte % 8.2 % (19-41); Mean Corpuscular Hgb 31.3 pg (27.0-32.0); Mean Corpuscular Volume 91.9 fL (80-94); Mean Platelet Vol. 11.6 fl (6.2-12.0); Monocyte# 0.72 X10^3/uL; NRBC Flagged by Analyzer 0 % (0-5); Neutrophil # 12.32 X10^3/uL (2.7-7.7); Neutrophil % 85.9 % (47-70); Platelet Count 201 K/mm3 (150-450); RBC Distribution Width CV 12.6 % (11.6-14.6); RBC Distribution Width SD 42.2 fl (35.1-43.9); Red Blood Count 4.83 M/mm3 (4.6-6.2); White Blood Count 14.4 K/mm3 (4.4-11.0)
[2020-05-04 03:57] LABS: ALB/GLOB Ratio 0.8 RATIO (0.9-2.4); AST(SGOT) 470 U/L (15-37); Alanine Aminotransfer ALT/SGPT 58 U/L (16-61); Alkaline Phosphatase 103 U/L (45-117); Anion Gap 6 (5-15); BUN 22 mg/dL (7-18); Calcium,Total 9.4 mg/dL (8.5-10.1); Chloride 98 mmol/L (98-107); Cholesterol 121 mg/dL (200); Creatinine, Serum 1.16 mg/dL (0.70-1.30); EST Glomerular Filtration Rate 66 mL/min (>60); Est Glom Filt Rate - Afr Amer 80 mL/min (>60); Estimated Creatinine Clearance 54.24 ml/min; Glucose 369 mg/dL (74-106); High Density Lipoprotein 41 mg/dL; Magnesium 1.8 mg/dL (1.6-2.6); Potassium 4.6 mmol/L (3.5-5.1); Sodium Level 132 mmol/L (136-145); Triglycerides 103 mg/dL; Very Low Density Lipoprotein 21 mg/dL (5-40)
[2020-05-04] MEDS: Insulin Lispro 100 UNIT/ML INSULN.PEN 6 UNIT SC (04:18)
[2020-05-04 08:01] LABS: Bedside Glucose 305 mg/dL (70-110)
[2020-05-04] MEDS: Lisinopril 10 MG Tablet PO (08:37)
[2020-05-04] MEDS: Aspirin 81 MG TAB.CHEW PO (08:37)
[2020-05-04] MEDS: Clopidogrel Bisulfate 75 MG Tablet PO (08:38)
[2020-05-04] MEDS: Carvedilol 6.25 MG Tablet PO ×2 (08:39→21:29)
[2020-05-04] MEDS: Glimepiride 2 MG Tablet PO (08:39)
--- NOTE | 2020-05-04 10:20 | PCM.PN.HOSP ---
Patient Problems: Active and Suspected Problems (Last Updated 05/03/20 @ 23:[address] Yeison Nevarez MD) Non-STEMI (non-ST elevated myocardial infarction) (Acute) Diabetes (Acute) Tobacco abuse (Acute) Subjective: Patient seen and examined. He was admitted with a complaint of chest pain and found to have non-STEMI. He was taken for emergent cardiac cath and had successful stenting of the mid left circumflex artery and attempted angioplasty of the in-stent restenosis of the posterior right descending artery stent. He also had angioplasty of the proximal right coronary artery and flow in-stent restenosis. Patient has no complaints this morning and feels well. He denies any fever, chills, shortness of breath, chest pain, nausea vomiting or diarrhea. Review of systems otherwise negative. He has remained hemodynamically stable. Vitals/I&O's: Vital Signs Temp Pulse Resp BP Pulse Ox 98.3 F 76 17 131/68 H 90 05/04/20 04:00 05/04/20 09:00 05/04/20 09:00 05/04/20 09:00 05/04/20 09:00 Oxygen Flow Rate (L/min) 2 Oxygen Delivery Method Room Air Weight: 187 lb 6.287 oz Body Mass Index (BMI) 30.2 Finger Stick Blood Glucose 206 Intake and Output for Last 24 Hours 05/02/20 05/03/20 05/04/20 23:59 23:59 23:59 Intake Total 470.36 / 470.36 Output Total 775 / 775 Balance -304.64 / -304.64 General: Alert, Oriented x3, Cooperative, No apparent distress HEENT: Atraumatic, PERRLA, EOMI, Normocephalic Oral: Dry Mucosa Neck: Supple, No JVD, Negative Carotid Bruits Lungs: - - few coarse crackles bibasally, no wheezes. on room air. Cardiovascular: Regular rate, Regular Rhythm, Normal S1, Normal S2, No murmurs Abdomen: Bowel Sounds Present, Soft, Non Tender, Non-Distended, No Hepato-splenomegaly Extremities: No clubbing, No cyanosis, No edema, Capillary Refill Less than 3 Seconds Skin: No rashes, No breakdown Musculoskeletal: No Tenderness to Palpation of Joints or Extremities Lymphatic: No Cervical, Supraclavicular, or Inguinal Adenopathy Neurological: Cranial nerves II-XII grossly intact, Neuro grossly intact, Motor Exam 5/5 strength throughout Psych/Mental Status: Normal Affect, Appropriate, Alert and oriented to time, place, person, mood and affect Microbiology Past 72 Hours 05/03/20 20:02 Mucosa - Nose SARS-CoV-2 Antigen (Rapid) - Final Laboratory Results 05/03/20 19:05: WBC 13.2 H, RBC 5.83, Hgb 18.3 H*, Hct 53.0, MCV 90.9, MCH 31.4, MCHC 34.5, RDW Std Deviation 41.0, RDW Coeff of Medardo 12.6, Plt Count 235, MPV 12.0, Immature Gran % (Auto) 0.500, Neut % (Auto) 87.0 H, Lymph % (Auto) 9.0 L, [place] % (Auto) 3.0, Eos % (Auto) 0.2, Baso % (Auto) 0.3, Absolute Neuts (auto) 11.5 H, Absolute Lymphs (auto) 1.19, Nucleated RBC % 0 05/03/20 19:05: D-Dimer Quant (PE/DVT) > 20.00 H* 05/03/20 19:05: Sodium 136, Potassium 4.3, Chloride 98, Carbon Dioxide 31.0, Anion Gap 7, BUN 19 H, Creatinine 1.31 H, Estim Creat Clear Calc 48.03, Est GFR (MDRD) Af Amer 70, Est GFR (MDRD) Non-Af 58 L, BUN/Creatinine Ratio 14.5, Glucose 380 H, Calcium 10.5 H, Troponin I 3.820 H* 05/03/20 19:05: APTT 27.1 05/03/20 23:07: Activated Clotting Time 191 H 05/03/20 23:19: Activated Clotting Time 357 H 05/03/20 23:50: Activated Clotting Time 324 H 05/04/20 00:32: Troponin I 22.800 H* 05/04/20 00:45: POC Glucose 415 H 05/04/20 02:30: POC Glucose 389 H 05/04/20 03:27: WBC 14.4 H, RBC 4.83, Hgb 15.1, Hct 44.4, MCV 91.9, MCH 31.3, MCHC 34.0, RDW Std Deviation 42.2, RDW Coeff of [place] 12.6, Plt Count 201, MPV 11.6, Immature Gran % (Auto) 0.600, Neut % (Auto) 85.9 H, Lymph % (Auto) 8.2 L, [place] % (Auto) 5.0, Eos % (Auto) 0.1, Baso % (Auto) 0.2, Absolute Neuts (auto) 12.3 H, Absolute Lymphs (auto) 1.18, Nucleated RBC % 0 05/04/20 03:27: Troponin I > 200.000 H* 05/04/20 03:27: Sodium 132 L, Potassium 4.6, Chloride 98, Carbon Dioxide 28.0, Anion Gap 6, BUN 22 H, Creatinine 1.16, Estim Creat Clear Calc 54.24, Est GFR (MDRD) Af Amer 80, Est GFR (MDRD) Non-Af 66, BUN/Creatinine Ratio 19.0, Glucose 369 H, Calcium 9.4, Magnesium 1.8, Total Bilirubin 0.40, AST 470 H, ALT 58, Alkaline Phosphatase 103, Total Protein 7.0, Albumin 3.0 L, Globulin 4.0, Albumin/Globulin Ratio 0.8 L, Triglycerides 103, Cholesterol 121, LDL Cholesterol 59, VLDL Cholesterol 21, HDL Cholesterol 41 05/04/20 07:54: POC Glucose 305 H Diagnostic Data Chest X-Ray 05/03/20 19:35 IMPRESSION: No acute cardiopulmonary findings or changes. Negative for consolidation, atelectasis or pleural effusion. Normal cardiac size status post prior midline sternotomy. Electronically Signed: Nisha Holliday MD at 20:34 EST , Service support , Chest CTA 05/03/20 20:12 IMPRESSION: Negative for pulmonary embolus. Atherosclerotic changes of the aorta without aneurysm or dissection. Normal cardiac size without pericardial effusion. Extensive coronary calcifications status post prior midline sternotomy. Centrilobular emphysematous changes of the upper lobes and diffuse bronchial thickening particularly in the lower lobes and more so in the left lower lobe with a dense band of atelectatic lung in the posterior left lower lobe without pleural effusion. Minor band of atelectasis in the dependent lingula. Electronically Signed: Nisha Holliday MD at 21:41 EST , Service support , Current Medications Acetaminophen (Acetaminophen 325 Mg Tablet) 650 mg PO Q6H PRN PRN PRN Reason: Pain Score 1-10/Temp > 100.7 F Aspirin (Aspirin 81 Mg Tab.Chew) 81 mg PO DAILY@0800 [facility] Last Admin: 05/04/20 08:37 Dose: 81 mg Documented by: Atorvastatin Calcium (Atorvastatin Calcium 40 Mg Tablet) 40 mg PO QHS [facility] Last Admin: 05/04/20 00:39 Dose: 40 mg Documented by: Atropine Sulfate (Atropine Sulfate 1 Mg/10 Ml Syringe) 0.5 mg IV UD PRN PRN Reason: HR <50 bpm Carvedilol (Carvedilol 6.25 Mg Tablet) 6.25 mg PO BID@0900,2100 [facility] Last Admin: 05/04/20 08:39 Dose: 6.25 mg Documented by: Clopidogrel Bisulfate (Clopidogrel Bisulfate 75 Mg Tablet) 75 mg PO DAILY [facility] Last Admin: 05/04/20 08:38 Dose: 75 mg Documented by: Dextrose (Dextrose 50%-Water 25 Gm/50 Ml Disp.Syrin) 0 gm IV X1 PRN; Protocol PRN Reason: Hypoglycemia Glimepiride (Glimepiride 2 Mg Tablet) 2 mg PO DAILYCM [facility] Last Admin: 05/04/20 08:39 Dose: 2 mg Documented by: Glucagon (Glucagon 1 Mg/Ml Syringe) 1 mg IM .X1 PRN PRN Reason: Hypoglycemia Heparin Sodium (Beef Lung) (Heparin Lock 500 Unit/5 Ml In 10 Ml Syringe) 500 unit IV UD PRN PRN Reason: HEPARIN FLUSH Heparin Sodium (Porcine) (Heparin Injection (Vial) 5,000 Unit/Ml Vial) 0 unit IV UD PRN; Protocol PRN Reason: dose adjustment Heparin Sodium/Dextrose () 25,000 units in 250 mls @ 12 mls/hr IV .[id number] [facility]; Protocol Last Titration: 05/04/20 00:20 Dose: Infused Documented by: Sodium Chloride () 250 mls @ 15 mls/hr IV .[id number] PRN PRN Reason: Saline Flush Sodium Chloride () 250 mls @ 15 mls/hr IV .[id number] PRN PRN Reason: Additional IVPB Infusion Sodium Chloride () 1,000 mls @ 75 mls/hr IV .[id number] [facility] Stop: 05/04/20 13:44 Last Admin: 05/04/20 01:04 Dose: 75 mls/hr Documented by: Insulin Human Lispro (Insulin Lispro 100 Unit/Ml Insuln.Pen) 0 unit SC ACHS [facility]; Protocol Last Admin: 05/04/20 08:36 Dose: 6 u Documented by: Labetalol HCl (Labetalol (Prefilled) 20 Mg/4 Ml) 5 mg IV X1 PRN PRN Reason: SBP >160 when pulling sheath Stop: 05/06/20 00:23 Lisinopril (Lisinopril 10 Mg Tablet) 10 mg PO DAILY [facility] Last Admin: 05/04/20 08:37 Dose: 10 mg Documented by: Melatonin (Melatonin 3 Mg Tablet) 3 mg PO QHS PRN PRN PRN Reason: INSOMNIA Morphine Sulfate (Morphine 2 Mg/Ml Syringe) 2 mg IV Q3H PRN PRN PRN Reason: Pain Score 6-10 Nitroglycerin (Nitroglycerin (Inpatient Use) 0.4 Mg Tab.Subl) 0.4 mg SUBLINGUAL Q5M PRN PRN Reason: CARDIAC/CHEST PAIN Ondansetron HCl (Ondansetron 4 Mg/2 Ml Vial) 4 mg IV Q8H PRN PRN PRN Reason: NAUSEA/VOMITING Sodium Chloride (0.9% Saline Lock 10 Ml Syringe) 10 - 40 ml IV UD PRN PRN Reason: SALINE FLUSH Sodium Chloride (0.9% Normal Saline 500 Ml Iv.Soln.) 500 ml IV BOLUS PRN PRN Reason: VASO-VAGAL PROTOCOL STROKE Vital Signs/Narrative: Vital Signs Pulse Resp BP Pulse Ox 05/04/20 09:00 76 17 131/68 H 90 05/04/20 08:00 73 15 137/67 H 93 05/04/20 07:46 73 05/04/20 07:00 71 17 125/68 H 98 Medical Necessity - Tobacco Use Smoking Status: Current every day smoker Tobacco Use: Cigarettes Assessment/Plan All Active Problems (Last Updated 05/03/20 @ 23:[address] Yeison Nevarez MD) Non-STEMI (non-ST elevated myocardial infarction) (Acute) Diabetes (Acute) Tobacco abuse (Acute) #Nonstemi -s/p cardiac cath with successful stenting of the mid left circumflex, and angioplasty of the instent re-stenosis of the proximal right coronary artery; attempted angioplasty of hte in stent re-stenosis fo the right posterior descending artery was performed. -cardiology on board -continue aspirin, statin and plavix. -counseled to quit smoking. #Hypertension -on carvedilol and lisinopril #Type 2 diabetes mellitus -metformin on hold o/a of cath. -on glimepiride -is hyperglycemic today. A1C is pending. -adjust meds based on A1C results #Nicotine dependence: counseled to quit. DVT prophylaxis: SCDs Inpatient E&M: 20909 Subs Hosp L2
[2020-05-04 10:45] LABS: Hemoglobin A1c 10.9 % (3.8-5.6)
--- NOTE | 2020-05-04 11:58 | PCM.PN.CARD ---
Subjectve: 70-year-old white male with non-STEMI and functional class IV angina. He had successful stenting of the mid subtotally occluded left circumflex. Attempt PTCA of the diffuse in-stent restenosis of the right posterior descending was unsuccessful most likely due to under deployed stent or calcification despite using NC balloon inflated to 28 lucy. Patient is pain-free. EKG showed improvement of the ST segment depression. Hemodynamically very stable. Groin is stable. Glucose however is still over 300. Renal function has improved with hydration despite contrast use Objective: Vital Signs Temp Pulse Resp BP Pulse Ox 98.3 F 76 17 131/68 H 90 05/04/20 04:00 05/04/20 09:00 05/04/20 09:00 05/04/20 09:00 05/04/20 09:00 Oxygen Flow Rate (L/min) 2 Oxygen Delivery Method Room Air Weight: 187 lb 6.287 oz Body Mass Index (BMI) 30.2 Finger Stick Blood Glucose 206 Intake and Output for Last 24 Hours 05/02/20 05/03/20 05/04/20 23:59 23:59 23:59 Intake Total 470.36 / 470.36 Output Total 775 / 775 Balance -304.64 / -304.64 General: Oriented x 3, Cooperative, No Acute Distress Neck: Supple Lungs: Clear to auscultation Cardiovascular: Regular Rhythm, Normal S1, Normal S2, No Murmurs Vascular: - - Groin site at the right femoral area is stable with no hematoma Abdomen: Bowel Sounds Present, Soft, Non Tender, No HSM, No Organomegaly 05/03/20 19:05: WBC 13.2 H, RBC 5.83, Hgb 18.3 H*, Hct 53.0, MCV 90.9, MCH 31.4, MCHC 34.5, Plt Count 235, MPV 12.0, Immature Gran % (Auto) 0.500, Neut % (Auto) 87.0 H, Lymph % (Auto) 9.0 L, [place] % (Auto) 3.0, Eos % (Auto) 0.2, Baso % (Auto) 0.3, Absolute Neuts (auto) 11.5 H, Nucleated RBC % 0 05/03/20 19:05: D-Dimer Quant (PE/DVT) > 20.00 H* 05/03/20 19:05: Sodium 136, Potassium 4.3, Chloride 98, Carbon Dioxide 31.0, Anion Gap 7, BUN 19 H, Creatinine 1.31 H, Est GFR (MDRD) Af Amer 70, Est GFR (MDRD) Non-Af 58 L, BUN/Creatinine Ratio 14.5, Glucose 380 H, Calcium 10.5 H, Troponin I 3.820 H* 05/03/20 19:05: APTT 27.1 05/04/20 00:32: Troponin I 22.800 H* 05/04/20 03:27: WBC 14.4 H, RBC 4.83, Hgb 15.1, Hct 44.4, MCV 91.9, MCH 31.3, MCHC 34.0, Plt Count 201, MPV 11.6, Immature Gran % (Auto) 0.600, Neut % (Auto) 85.9 H, Lymph % (Auto) 8.2 L, [place] % (Auto) 5.0, Eos % (Auto) 0.1, Baso % (Auto) 0.2, Absolute Neuts (auto) 12.3 H, Nucleated RBC % 0 05/04/20 03:27: Troponin I > 200.000 H* 05/04/20 03:27: Sodium 132 L, Potassium 4.6, Chloride 98, Carbon Dioxide 28.0, Anion Gap 6, BUN 22 H, Creatinine 1.16, Est GFR (MDRD) Af Amer 80, Est GFR (MDRD) Non-Af 66, BUN/Creatinine Ratio 19.0, Glucose 369 H, Calcium 9.4, Magnesium 1.8, Total Bilirubin 0.40, Triglycerides 103, Cholesterol 121, LDL Cholesterol 59, VLDL Cholesterol 21, HDL Cholesterol 41 05/04/20 03:27: Hemoglobin A1c 10.9 H Rhythm: EKG: ECHO: Stress Test: Cardiac Cath: PCI: CT Surgery: Holter monitor: EPS: PPM: CXR: Chest CT Scan: Medical Necessity - Tobacco Use Smoking Status: Current every day smoker Tobacco Use: Cigarettes Assessment/Plan #1 non-STEMI with functional class IV angina. Treated with successful stenting of the subtotally occluded mid left circumflex. Failed angioplasty of the diffuse in-stent restenosis of the right posterior descending despite using high-pressure inflation up to 28 embosphere. This is most likely due to underexpansion of the stent or calcification. The procedure can be repeated with ELCA or IVL at [facility]. Mild to moderate ostial left main disease which needs to be monitored. From cardiac standpoint patient can be transferred to stepdown for ambulation. If the glucose is under better control, patient can be discharged tomorrow. #2 unsustained ventricular tachycardia #3 2013 had 5 grafts bypass #4 COPD from cigarette smoking #5 3 stents put in 4 years ago #6 hypertension, diabetes and hyperlipidemia
[2020-05-04 12:15] LABS: Bedside Glucose 274 mg/dL (70-110)
[2020-05-04 16:50] LABS: Bedside Glucose 365 mg/dL (70-110)
[2020-05-04 22:40] LABS: Bedside Glucose 258 mg/dL (70-110)
[2020-05-05 02:59] VITALS: PULSE 68
[2020-05-05 04:45] VITALS: BP 123/58; PULSE 73; RESP 18; TEMP 36.9; O2SAT 97
[2020-05-05 06:16] LABS: Absolute Lymphocyte Count 1.73 X10^3/uL (0.83-4.51); Absolute Neutrophil Count 6.3 X10^3/uL (2.0-7.7); Basophil# 0.03 X10^3/uL; Basophil% 0.3 % (0-1); Eosinophil# 0.19 X10^3/uL; Eosinophils% 2.1 % (0-5); Hematocrit 41.7 % (40-54); Hemoglobin 13.9 g/dL (13.0-16.5); Lymphocyte # 1.73 X10^3/ul (4.0); Mean Corp Hgb Conc 33.3 g/dL (32-36); Mean Corpuscular Hgb 30.3 pg (27.0-32.0); Mean Platelet Vol. 11.9 fl (6.2-12.0); Monocyte# 0.82 X10^3/uL; NRBC Flagged by Analyzer 0 % (0-5); Neutrophil # 6.31 X10^3/uL (2.7-7.7); Neutrophil % 69.2 % (47-70); Platelet Count 153 K/mm3 (150-450); RBC Distribution Width CV 12.6 % (11.6-14.6); Red Blood Count 4.58 M/mm3 (4.6-6.2); White Blood Count 9.1 K/mm3 (4.4-11.0)
[2020-05-05 06:54] VITALS: PULSE 77
[2020-05-05 06:59] LABS: Anion Gap 5 (5-15); BUN 19 mg/dL (7-18); Chloride 105 mmol/L (98-107); EST Glomerular Filtration Rate 79 mL/min (>60); Est Glom Filt Rate - Afr Amer 96 mL/min (>60); Estimated Creatinine Clearance 62.91 ml/min; Glucose 141 mg/dL (74-106); Potassium 3.6 mmol/L (3.5-5.1); Sodium Level 136 mmol/L (136-145)
[2020-05-05 07:00] LABS: Bedside Glucose 148 mg/dL (70-110)
[2020-05-05] MEDS: Carvedilol 6.25 MG Tablet PO (08:51)
[2020-05-05] MEDS: Aspirin 81 MG TAB.CHEW PO (08:51)
[2020-05-05] MEDS: Lisinopril 10 MG Tablet PO (08:51)
[2020-05-05] MEDS: Clopidogrel Bisulfate 75 MG Tablet PO (08:51)
[2020-05-05] MEDS: Glimepiride 2 MG Tablet PO (08:52)
--- NOTE | 2020-05-05 10:00 | EKG12_ITS ---
Test Reason : AM EKG Blood Pressure : / mmHG Vent. Rate : 070 BPM Atrial Rate : 070 BPM P-R Int : 140 ms QRS Dur : 086 ms QT Int : 408 ms P-R-T Axes : 063 053 115 degrees QTc Int : 440 ms Normal sinus rhythm Inferior infarct , age undetermined ST & T wave abnormality, consider lateral ischemia Abnormal ECG Confirmed by JASON MATHIAS, GENESIS ([id number]), editor school photograph NADEEN SANCHEZ ([id number]) on 05/09/2020 9:34:24 AM Referred By: DR CAMPBELL Confirmed By:GENESIS GOMEZ MD
[2020-05-05 10:31] VITALS: BP 108/63; PULSE 67; RESP 16; TEMP 36.7; O2SAT 96
[2020-05-05] MEDS: Insulin Lispro 100 UNIT/ML INSULN.PEN SC (11:48)
[2020-05-05] MEDS: 0.9% Saline Lock 10 ML Syringe IV (11:48)
[2020-05-05 11:56] LABS: Bedside Glucose 319 mg/dL (70-110)
--- NOTE | 2020-05-05 12:08 | PN.CARD_ITS ---
Subjectve: Patient had non-STEMI and under went successful stenting of the mid left circumflex. There was in-stent restenosis of the proximal and distal right coronary artery. He denies any chest discomfort or shortness of breath. He is ambulating well. On admission liver enzyme was elevated. Liver enzyme is to be repeated today. Hemodynamically stable. Right groin is stable Objective: Vital Signs Temp Pulse Resp BP Pulse Ox 98.0 F 67 16 108/63 96 05/05/20 10:31 05/05/20 10:31 05/05/20 10:31 05/05/20 10:31 05/05/20 10:31 Oxygen Flow Rate (L/min) 2 Oxygen Delivery Method Room Air Weight: 185 lb 6.54 oz Body Mass Index (BMI) 30.2 Finger Stick Blood Glucose 206 Intake and Output for Last 24 Hours 05/03/20 05/04/20 05/05/20 23:59 23:59 23:59 Intake Total 1597.86 / 1837.86 240 / 240 Output Total 775 / 775 Balance 822.86 / 1062.86 240 / 240 General: Healthy Appearing, Awake, Alert, Oriented x 3, No Acute Distress Neck: Supple Lungs: Clear to auscultation Cardiovascular: Regular Rhythm, Normal S1, Normal S2, No Murmurs, No Rubs, No Gallops Vascular: - - Right groin stable Abdomen: Bowel Sounds Present, Soft, Non Tender, No HSM, No Organomegaly Neurological: No Focal Motor or Sensory Deficit 05/05/20 05:43: WBC 9.1, RBC 4.58 L, Hgb 13.9, Hct 41.7, MCV 91.0, MCH 30.3, MCHC 33.3, Plt Count 153, MPV 11.9, Immature Gran % (Auto) 0.400, Neut % (Auto) 69.2, Lymph % (Auto) 19.0, [place] % (Auto) 9.0, Eos % (Auto) 2.1, Baso % (Auto) 0.3, Absolute Neuts (auto) 6.3, Nucleated RBC % 0 05/05/20 05:43: Sodium 136, Potassium 3.6, Chloride 105, Carbon Dioxide 26.0, Anion Gap 5, BUN 19 H, Creatinine 1.00, Est GFR (MDRD) Af Amer 96, Est GFR (MDRD) Non-Af 79, BUN/Creatinine Ratio 19.0, Glucose 141 H, Calcium 9.0 Rhythm: EKG: ECHO: Stress Test: Cardiac Cath: PCI: CT Surgery: Holter monitor: EPS: PPM: CXR: Chest CT Scan: Medical Necessity - Tobacco Use Smoking Status: Current every day smoker Tobacco Use: Cigarettes Assessment/Plan #1 non-STEMI with functional class IV angina. Treated with successful stenting of the subtotally occluded mid left circumflex. Failed angioplasty of the diffuse in-stent restenosis of the right posterior descending despite using high -pressure inflation up to 28 embosphere. This is most likely due to underexpansion of the stent or calcification. The procedure can be repeated with ELCA or IVL at [facility]. Mild to moderate ostial left main disease which needs to be monitored. From cardiac standpoint patient can be transferred to stepdown for ambulation. Liver enzyme is to be repeated before discharge. Patient will be follow-up with with Dr. Guillen in the clinic #2 unsustained ventricular tachycardia no recurrence #3 2013 had 5 grafts bypass #4 COPD from cigarette smoking #5 3 stents put in 4 years ago #6 hypertension, diabetes and hyperlipidemia
--- NOTE | 2020-05-05 12:23 | DCINST_ITS ---
- Discharge Diagnoses Current Active Problems: Current Active and Chronic Problems (Last Updated 05/03/20 @ 23:[address] Yeison Nevarez MD) Non-STEMI (non-ST elevated myocardial infarction) (Acute) HTN (hypertension) (Chronic) Diabetes (Acute) Tobacco abuse (Acute) You will use the following diet at home:: Cardiac - 1800 calorie Your food should be the consistency of: Regular Your liquids should be the consistency of: Regular/Thin Discharge Activity: No Restrictions Weight Bearing Status: Weight bearing as tolerated Call your doctor if you observe: Fever of 101 or Higher, Shortness of breath, Dizziness, Chest pain, Uncontrolled pain Instructions: ED Heart Disease Risk Factors, Heart Attack Allergies/Adverse Reactions: Allergies No Known Allergies Allergy (Verified 05/03/20 19:02) Medications to take at Discharge Aspirin [Aspirin, Baby] 81 mg PO DAILY@0800 11/01/14 Atorvastatin Calcium [Lipitor] 40 mg PO QHS 11/01/14 Lisinopril [Zestril] 10 mg PO DAILY 11/01/14 metFORMIN HCl [Glucophage] 500 mg PO BIDCM #60 tablet 11/02/14 Clopidogrel Bisulfate [Plavix] 75 mg PO DAILY 06/05/16 Glimepiride [Amaryl] 2 mg PO DAILY 06/06/16 Carvedilol [Coreg (Beta Yoni)] 6.25 mg PO BID@0900,2100 #60 tab 05/05/20 Clopidogrel Bisulfate [Plavix] 75 mg PO DAILY #30 tab 05/05/20 Insulin Glargine [Lantus SoloStar Pen] 10 units SC QHS #10 pen 05/05/20 The following prescriptions were given: Carvedilol [Coreg (Beta Yoni)] 6.25 mg PO BID@0900,2100 #60 tab Transmission Status: [id number] Insulin Glargine [Lantus SoloStar Pen] 10 units SC QHS #10 pen Transmission Status: [facility][id number] Clopidogrel Bisulfate [Plavix] 75 mg PO DAILY #30 tab Transmission Status: [id number] Primary Care Physician: Care Physician,No Primary [Primary Care Provider] - Test Results: Test results from this visit will be discussed in further detail at your follow- up appointment, if applicable. Please Follow Up With: Anthony Marcus MD When: 1-2 weeks to set up PCP appointment Please Follow Up With: Rick Guillen MD When: 2-3 weeks; call office for appointment Please Follow Up With: Santana Raines MD When: 2-3 weeks; call office for appointment for endocrinology Proposed Discharge Date: 05/05/20
[2020-05-05 12:39] LABS: AST(SGOT) 228 U/L (15-37); Alanine Aminotransfer ALT/SGPT 53 U/L (16-61)
--- NOTE | 2020-05-05 13:52 | NURSING ---
Insulin Pen injection education completed by this RN. Demonstrated process to patient and handout provided. Pt returned demonstration to this RN. States understanding at this time.
--- NOTE | 2020-05-05 14:00 | CASEMGMT ---
RN CM SENIOR SCHEDULER CM to room to meet with patient for initial transition planning/care coordination assessment. BART MCINTOSH introduced self and role at [facility]. Pt voices understanding and consents to assessment at this time. Pt resting in bed in no distress at this time. Pt is A/O at this time and answers all questions appropriately. Care providers, pharmacy, and demographics verified/updated at this time. PCP:No PCP. Provided with list of local PCP's. Specialists: None. Pt given Dr Raines/endocrinology rac card and made aware Dr Albarran would like him to f/u with Dr Raines Preferred Pharmacy: [facility] [place] Insurance: [facility], MMO. Prescription Benefit: Yes. Dr Albarran e-scribed script to [facility] for Lantus. Per pharmacy, Lantus is not on formulary but Basaglar, Levemir, and Tresiva are. Dr Albarran made aware and new script for Glargine (Basaglar) e-scribed to [facility]. Living Will/HPOA: Pt does not currently have LW/HCPOA LNOK:Daughter: Berenice Matamoros. 2 sons: Maryann Living Arrangements: Lives alone in split level home w/6 steps to enter. Independent. Transportation: Pt states drives self and states no transportation concerns at this time. Son will take him home @ discharge. DME: Ambulates independently with no DME. States has a glucometer but has not used it in a long time and does not know where it is. HHC/SNF: No history of either and denies needs. Pt given script for glucometer and supplies. He was advised to ask pharmacist where he picks up the glucometer to review glucometer/instructions on use of glucometer with him. He voices understanding. Pt also made aware of [facility] Diabetic clinic and provided w/rac card/info/contact number. Pt states has never given himself insulin in the past but he is willing to learn. RNElizabeth, made aware of need for Insulin teaching. Pt wishes to return home and states has no concerns with going home at time of discharge. CM to follow for any further discharge planning/needs. Pt voices no further concerns/needs at this time. Advised pt to ask for CM if any further questions/concerns/needs arise. Voices understanding. PLAN: Home Shamika IGLESIAS RN, CM
--- NOTE | 2020-05-05 15:06 | DS.PCM_ITS ---
Discharge Date and Diagnosis - Problem List Patient Problems: Active and Suspected Problems (Last Updated 05/03/20 @ 23:[address] Yeison Nevarez MD) Non-STEMI (non-ST elevated myocardial infarction) (Acute) Diabetes (Acute) Tobacco abuse (Acute) Date of Admission: 05/03/20 Date of Discharge: 05/05/20 - Primary Discharge Diagnosis Acute Problems: Active Problems (Last Updated 05/03/20 @ 23:[address] Yeison Nevarez MD) Non-STEMI (non-ST elevated myocardial infarction) (Acute) Diabetes (Acute) Tobacco abuse (Acute) - Secondary Discharge Diagnosis Chronic Problems: Chronic Problems (Last Updated 05/03/20 @ 23:[address] Yeison Nevarez MD) HTN (hypertension) (Chronic) Hospital Course and Treatment Imaging Results: Diagnostic Data Chest X-Ray 05/03/20 19:35 IMPRESSION: No acute cardiopulmonary findings or changes. Negative for consolidation, atelectasis or pleural effusion. Normal cardiac size status post prior midline sternotomy. Electronically Signed: Nisha Holliday MD at 20:34 EST , Service support , Chest CTA 05/03/20 20:12 IMPRESSION: Negative for pulmonary embolus. Atherosclerotic changes of the aorta without aneurysm or dissection. Normal cardiac size without pericardial effusion. Extensive coronary calcifications status post prior midline sternotomy. Centrilobular emphysematous changes of the upper lobes and diffuse bronchial thickening particularly in the lower lobes and more so in the left lower lobe with a dense band of atelectatic lung in the posterior left lower lobe without pleural effusion. Minor band of atelectasis in the dependent lingula. Electronically Signed: Nisha Holliday MD at 21:41 EST , Service support , cardiology- Dr Obregon Operations: - - left partial rey nephrectomy Procedures: 2-D Echocardiogram, Cardiac catheterization Summary of Care Provided: The patient is a 70 year old M with a past medical history of hypertension, type 2 diabetes mellitus, CAD s/p CABG x5 and nicotine dependence. He has also had 3 stents placed. He came into the ED on 05/03/2020 with a complaint of progressively worsening substernal chest pain was started on the day of admission. He had no aggravating or relieving factors and he denied any nausea vomiting but had associated diaphoresis. EKG done on admission showed ST depression troponins were elevated. He was admitted and managed for non-STEMI. He was sent emergently to cardiac cath and had successful stenting of the mid left circumflex artery and angioplasty of the right proximal right coronary artery and its in-stent restenosis. He also had attempted angioplasty of the in-stent restenosis of the posterior right descending coronary artery. A1c was markedly elevated at 10.9. Patient was therefore started on Lantus 10 units daily. He admitted to not being compliant with his Metformin and glimepiride. 2D echo done showed EF of 53% with moderate concentric left ventricular hypertrophy and segmental dysfunction of the left ventricle. He remained stable and was discharged home on 05/05/2020. He was discharged on Basaglar insulin 10 units nightly as well as Metformin and glimepiride. He was counseled on compliance. He was also referred to Dr. Santana Raines of endocrinology for better control of his diabetes. He is to follow-up with his primary care doctor and cardiology as well as endocrinology. Patient seen and examined prior to discharge. He felt well and had no complaints. He wanted to go home. Review of symptoms otherwise negative. Labs and vitals reviewed. Medication reviewed and reconciled. O/E: Vital Signs Temp Pulse Resp BP Pulse Ox 98.0 F 67 16 108/63 96 05/05/20 10:31 05/05/20 10:31 05/05/20 10:31 05/05/20 10:31 05/05/20 10:31 [] General: Alert, Oriented x3, Cooperative, No apparent distress HEENT: Atraumatic, PERRLA, EOMI, Normocephalic Oral: Dry Mucosa Neck: Supple, No JVD, Negative Carotid Bruits Lungs: - - few coarse crackles bibasally, no wheezes. on room air. Cardiovascular: Regular rate, Regular Rhythm, Normal S1, Normal S2, No murmurs Abdomen: Bowel Sounds Present, Soft, Non Tender, Non-Distended, No Hepato- splenomegaly Extremities: No clubbing, No cyanosis, No edema, Capillary Refill Less than 3 Seconds Skin: No rashes, No breakdown Musculoskeletal: No Tenderness to Palpation of Joints or Extremities Lymphatic: No Cervical, Supraclavicular, or Inguinal Adenopathy Neurological: Cranial nerves II-XII grossly intact, Neuro grossly intact, Motor Exam 5/5 strength throughout Psych/Mental Status: Normal Affect, Appropriate, Alert and oriented to time, place, person, mood and affect He is continued on his aspirin, Plavix, statin, carvedilol and lisinopril. Patient referred to [facility] to establish PCP care. Patient Problems: Active and Suspected Problems (Last Updated 05/03/20 @ 23:[address] Yeison Nevarez MD) Non-STEMI (non-ST elevated myocardial infarction) (Acute) Diabetes (Acute) Tobacco abuse (Acute) - Physical Exam Vitals/I&O's: Vital Signs Temp Pulse Resp BP Pulse Ox 98.0 F 67 16 108/63 96 05/05/20 10:31 05/05/20 10:31 05/05/20 10:31 05/05/20 10:31 05/05/20 10:31 Oxygen Flow Rate (L/min) 2 Oxygen Delivery Method Room Air Weight: 185 lb 6.54 oz Body Mass Index (BMI) 30.2 Finger Stick Blood Glucose 206 Intake and Output for Last 24 Hours 05/03/20 05/04/20 05/05/20 23:59 23:59 23:59 Intake Total 1597.86 / 1837.86 600 / 600 Output Total 775 / 775 Balance 822.86 / 1062.86 600 / 600 Microbiology Past 72 Hours 05/03/20 20:02 Mucosa - Nose SARS-CoV-2 Antigen (Rapid) - Final Laboratory Results 05/04/20 16:29: POC Glucose 365 H 05/04/20 21:25: POC Glucose 258 H 05/05/20 05:43: WBC 9.1, RBC 4.58 L, Hgb 13.9, Hct 41.7, MCV 91.0, MCH 30.3, MCHC 33.3, RDW Std Deviation 42.0, RDW Coeff of Medardo 12.6, Plt Count 153, MPV 11.9, Immature Gran % (Auto) 0.400, Neut % (Auto) 69.2, Lymph % (Auto) 19.0, Hawkins % (Auto) 9.0, Eos % (Auto) 2.1, Baso % (Auto) 0.3, Absolute Neuts (auto) 6.3, Absolute Lymphs (auto) 1.73, Nucleated RBC % 0 05/05/20 05:43: Sodium 136, Potassium 3.6, Chloride 105, Carbon Dioxide 26.0, Anion Gap 5, BUN 19 H, Creatinine 1.00, Estim Creat Clear Calc 62.91, Est GFR (MDRD) Af Amer 96, Est GFR (MDRD) Non-Af 79, BUN/Creatinine Ratio 19.0, Glucose 141 H, Calcium 9.0 05/05/20 05:43: AST 228 H, ALT 53 05/05/20 06:47: POC Glucose 148 H 05/05/20 11:47: POC Glucose 319 H Current Medications Acetaminophen (Acetaminophen 325 Mg Tablet) 650 mg PO Q6H PRN PRN PRN Reason: Pain Score 1-10/Temp > 100.7 F Aspirin (Aspirin 81 Mg Tab.Chew) 81 mg PO DAILY@0800 [facility] Last Admin: 05/05/20 08:51 Dose: 81 mg Documented by: Atorvastatin Calcium (Atorvastatin Calcium 40 Mg Tablet) 40 mg PO QHS [facility] Last Admin: 05/04/20 21:29 Dose: 40 mg Documented by: Atropine Sulfate (Atropine Sulfate 1 Mg/10 Ml Syringe) 0.5 mg IV UD PRN PRN Reason: HR <50 bpm Carvedilol (Carvedilol 6.25 Mg Tablet) 6.25 mg PO BID@0900,2100 [facility] Last Admin: 05/05/20 08:51 Dose: 6.25 mg Documented by: Clopidogrel Bisulfate (Clopidogrel Bisulfate 75 Mg Tablet) 75 mg PO DAILY [facility] Last Admin: 05/05/20 08:51 Dose: 75 mg Documented by: Dextrose (Dextrose 50%-Water 25 Gm/50 Ml Disp.Syrin) 0 gm IV X1 PRN; Protocol PRN Reason: Hypoglycemia Glimepiride ([facility] 2 Mg Tablet) [facility] Last Admin: 05/05/20 08:52 Dose: 2 mg Documented by: Glucagon (Glucagon 1 Mg/Ml Syringe) 1 mg IM .X1 PRN PRN Reason: Hypoglycemia Heparin Sodium (Beef Lung) (Heparin Lock 500 Unit/5 Ml In 10 Ml Syringe) 500 unit IV UD PRN PRN Reason: HEPARIN FLUSH Heparin Sodium (Porcine) (Heparin Injection (Vial) 5,000 Unit/Ml Vial) 0 unit IV UD PRN; Protocol PRN Reason: dose adjustment Sodium Chloride () 250 mls @ 15 mls/hr IV .[id number] PRN PRN Reason: Saline Flush Sodium Chloride () 250 mls @ 15 mls/hr IV .[id number] PRN PRN Reason: Additional IVPB Infusion Insulin Glargine (Insulin Glargine 100 Units/Ml Pen) 10 units SC QHS [facility] Last Admin: 05/04/20 21:29 Dose: 10 units Documented by: Insulin Human Lispro (Insulin Lispro 100 Unit/Ml Insuln.Pen) 0 unit SC ACHS [facility]; Protocol Last Admin: 05/05/20 11:48 Dose: 6 u Documented by: Labetalol HCl (Labetalol (Prefilled) 20 Mg/4 Ml) 5 mg IV X1 PRN PRN Reason: SBP >160 when pulling sheath Stop: 05/06/20 00:23 Lisinopril (Lisinopril 10 Mg Tablet) 10 mg PO DAILY [facility] Last Admin: 05/05/20 08:51 Dose: 10 mg Documented by: Melatonin (Melatonin 3 Mg Tablet) 3 mg PO QHS PRN PRN PRN Reason: INSOMNIA Morphine Sulfate (Morphine 2 Mg/Ml Syringe) 2 mg IV Q3H PRN PRN PRN Reason: Pain Score 6-10 Nitroglycerin (Nitroglycerin (Inpatient Use) 0.4 Mg Tab.Subl) 0.4 mg SUBLINGUAL Q5M PRN PRN Reason: CARDIAC/CHEST PAIN Ondansetron HCl (Ondansetron 4 Mg/2 Ml Vial) 4 mg IV Q8H PRN PRN PRN Reason: NAUSEA/VOMITING Sodium Chloride (0.9% Saline Lock 10 Ml Syringe) 10 - 40 ml IV UD PRN PRN Reason: SALINE FLUSH Last Admin: 05/05/20 11:48 Dose: 10 ml Documented by: Sodium Chloride (0.9% Normal Saline 500 Ml Iv.Soln.) 500 ml IV BOLUS PRN PRN Reason: VASO-VAGAL PROTOCOL Discharge Diet: 1800 Calorie Control Diet Discharge Activity: No Restrictions Weight Bearing Status: Weight bearing as tolerated Call your doctor if you observe: Fever of 101 or Higher, Shortness of breath, Dizziness, Chest pain, Uncontrolled pain Home Medications: Medications to take at Discharge Aspirin [Aspirin, Baby] 81 mg PO DAILY@0800 11/01/14 Atorvastatin Calcium [Lipitor] 40 mg PO QHS 11/01/14 Lisinopril [Zestril] 10 mg PO DAILY 11/01/14 metFORMIN HCl [Glucophage] 500 mg PO BIDCM #60 tablet 11/02/14 Clopidogrel Bisulfate [Plavix] 75 mg PO DAILY 06/05/16 Glimepiride [Amaryl] 2 mg PO DAILY 06/06/16 Carvedilol [Coreg (Beta Yoni)] 6.25 mg PO BID@0900,2100 #60 tab 05/05/20 Clopidogrel Bisulfate [Plavix] 75 mg PO DAILY #30 tab 05/05/20 Insulin Glargine,Hum.rec.anlog [Basaglar Kwikpen U-100] 10 unit SC QHS #10 insuln.pen 05/05/20 Pen Needle, Diabetic [Insulin Pen Needle] 1 ea [facility] #100 dis.needle 05/05/20 Following Prescriptions Were Given to Patient: Insulin Glargine,Hum.rec.anlog [Basaglar Kwikpen U-100] 10 unit SC QHS #10 insuln.pen Transmission Status: Received by [facility]acy #[id number] Carvedilol [Coreg (Beta Yoni)] 6.25 mg PO BID@0900,2100 #60 tab Transmission Status: [id number] Pen Needle, Diabetic [Insulin Pen Needle] 1 ea [facility] #100 dis.needle Transmission Status: [id number] Clopidogrel Bisulfate [Plavix] 75 mg PO DAILY #30 tab Transmission Status: [id number] Primary Care Physician: Care Physician,No Primary [Primary Care Provider] - Please Follow Up With: Anthony Marcus MD When: 1-2 weeks to set up PCP appointment Please Follow Up With: Rick Guillen MD When: 2-3 weeks; call office for appointment Please Follow Up With: Santana Raines MD When: 2-3 weeks; call office for appointment for endocrinology Patient Instructions: Heart Attack, ED Heart Disease Risk Factors Disposition: Home Minutes spent on discharge:: 40 Patient Condition:: Stable Medical Necessity - Tobacco Use Smoking Status: Current every day smoker Tobacco Use: Cigarettes Meaningful Use Info Meaningful Use Diagnoses (Choose all that apply): AMI - AMI/Post PCI/Angioplasty Aspirin given w/in 24hrs of arrival?: Yes ASA at discharge?: Yes Antiplatelet Therapy at Discharge:: Yes Statins at discharge?: Yes Justice/ARB at discharge?: Yes Beta Yoni at discharge?: Yes Done w/ Acute DE measure.: Yes Documented LVEF (%): 53 Inpatient E&M: [id number] Disch Hosp
--- NOTE | 2020-05-08 07:40 | CRPHASE1 ---
Patient Communication Choice Program [facility] CR PHII:: Communication Given to CR, Refer to [facility] Choice Letter Given to Patient:: Yes Guide to Cardiac Rehab Given by ICU Staff Prior to Discharge: Yes Guide to Cardiac Rehab Mailed to Patient by CR Staff:: Yes - PT WAS D/C'D HOME, F/U CALL MADE. PT STATED RECEIVED INFO FRIOR TO D/C Patient Contacted Post Discharge by CR Staff:: Yes - CALLED PT 05/10/2020 FOR F/U Risk Factors/Lifestyle Family History: Family History (Last Updated 05/08/20 @ 08:38 by Malia Murray) Father Diabetes Laboratory Values: Cardiac Rehab Phase I Labs Hemoglobin A1c 10.9 % (3.8-5.6) H 05/04/20 03:27 Triglycerides 103 mg/dL (-199) 05/04/20 03:27 Cholesterol 121 mg/dL (200) 05/04/20 03:27 LDL Cholesterol 59 mg/dL (0-130) 05/04/20 03:27 HDL Cholesterol 41 mg/dL (40-) 05/04/20 03:27 Cardiac Rehabilitation Info Cardiac Rehabilitation Program Information: Cardiac Rehabilitation is important for patients like you who are recovering from a heart problem. Cardiac rehabilitation programs are recognized as integral to the continued care of the patient with coronary heart disease. The cardiac rehabilitation program is designed to optimize a patient's physical, psychological, and social functioning. Health home health care physician work in cardiac rehabilitation programs and assist you with getting the treatments you need to get stronger and healthier - like exercise, healthy eating habits, and medications. Cardiac rehabilitation has been show to help people with heart problems live longer and have better life enjoyment than people who do not go to cardiac rehabilitation. Please contact the Cardiac Rehabilitation Program at [facility] at in two weeks if you have not heard from them.
--- NOTE | 2020-05-08 13:22 | CASEMGMT ---
BART CM DC PHONE CALL DC DATE: 05/05/2020 DC DISPOSITION: Home with new diabetic scripts. DC DIAGNOSIS: NSTEMI LACE/STRATA: 03/11 F/U APPTS MADE PRIOR TO DC: yes Attempted to call patient. No answer and no voice messaging available with name identifier. Bin CLEMENTN RN ACM
--- NOTE | 2020-05-10 13:15 | CRPH1.INSTRU ---
General Education CAD and cardiac anatomy and function:: Not instructed - PT WAS DISCHARGED HOME. CALLED TO VERIFY RCEIVIED BOOKLET. WILL CALL BACK TO SCHEDULE INTERVIEW.
== END 2020-05-05 15:18 | disposition home or self-care (01) | DRG 247 ==
LOC: ED 19:26 → ICU 21:58 → PCU 05-04 14:39
PROVIDERS: Internal Medicine Cardiovascular Disease; Admitting Provider Hospitalist; Emergency Provider Emergency Medicine; Visit Provider Student in an Organized Health Care Education/Training Program
DX: I21.4 Non-ST elevation (NSTEMI) myocardial infarction (principal); I47.2 Ventricular tachycardia; T82.855A Stenosis of coronary artery stent, initial encounter; Y83.1 Surgical operation with implant of artificial internal device as the cause of abnormal reaction of the patient, or of later complication, without mention of misadventure at the time of the procedure; I25.119 Atherosclerotic heart disease of native coronary artery with unspecified angina pectoris; I11.0 Hypertensive heart disease with heart failure; I70.0 Atherosclerosis of aorta; E11.65 Type 2 diabetes mellitus with hyperglycemia; E78.00 Pure hypercholesterolemia, unspecified; J44.9 Chronic obstructive pulmonary disease, unspecified; F17.210 Nicotine dependence, cigarettes, uncomplicated; Z79.4 Long term (current) use of insulin; Z79.02 Long term (current) use of antithrombotics/antiplatelets; Z90.5 Acquired absence of kidney; Z95.1 Presence of aortocoronary bypass graft; Z95.5 Presence of coronary angioplasty implant and graft; Z91.14 Patient's other noncompliance with medication regimen; Z79.899 Other long term (current) drug therapy; Z23 Encounter for immunization
CPT/HCPCS: 36415; 71045; 71275; 80048; 80053; 80061; 82962; 83036; 83735; 84450; 84460; 84484; 85025; 85347; 85379; 85730; 87426; 92920; 92928; 93005; 93306; 93458; 99152; 99153; 99285; G0008; J7030; J7040; Q9957; Q9967; 90686; A4216; C1725; C1760; C1769; C1874; C1887; C8929; C9600; J2405